=== PATIENT | female | born 1940 | race Caucasian/White ===

== ENCOUNTER 2016-10-06 12:45 | Emergency (ER) | payer MEDICARE ==
[2016-10-06 13:45] VITALS: BP 140/63
--- NOTE | 2016-10-06 13:50 | UC ---
Respiratory Complaint HPI - HPI Summary HPI Summary: complaint of cough and sneezing that started approx 3.5 weeks ago for 4 days she is having wheezing at night and chills -fatigued and feels weak nasal congestion and sinus pressure for the last 3 days denies fever sore throat, shortness of breath poor appetite for 3 days abut drinking fluids took some robitussin for her cough without relief. currently taking medication for lung Cancer- unsure of her treatment plan and how long she has been under treatment- sees Dr Hawley PCP and Dr Escobedo at [facility] appt in 11/2016 - History of Current Complaint Chief Complaint: UCRespiratory Stated Complaint: COUGH,SINUS Time Seen by Provider: 10/06/16 13:31 Hx Obtained From: Patient Hx Last Menstrual Period: n/a - Allergies/Home Medications Allergies/Adverse Reactions: Allergies Allergy/AdvReac Type Severity Reaction Status Date / Time Meperidine [From Demerol HCl] Allergy Intermediate GI Upset Verified 05/30/16 15 :00 Home Medications: Home Medications Megestrol TAB* [Megace TAB*] 40 mg PO TID 10/06/16 [History Confirmed 10/06/16] Triamcinolone 0.1% Oint (NF) [Triamcinolone Acetonide] 1 applic TOPICAL DAILY [History Confirmed 10/06/16] PMH/Surg Hx/FS Hx/Imm Hx Previously Healthy: No - lung cancer Endocrine History Of: Denies: Diabetes Cardiovascular History Of: Denies: Hypertension, Pacemaker/ICD, Congestive Heart Failure GI/ History Of: Denies: Renal Disease - Surgical History Surgical History: Yes Surgery Procedure, Year, and Place: Cholecystectomy, 2011; Complete Hysterectomy , 1988; Right Arm Nerve and Tendon Repair s/p Laceration, 1969 - Family History Known Family History: Positive: Respiratory Disease Negative: Cardiac Disease, Hypertension, Diabetes - Social History Occupation: Employed Part-time Lives: With Family Alcohol Use: None Substance Use Type: None Smoking Status (MU): Never Smoked Tobacco - Immunization History Most Recent Influenza Vaccination: Not the 2015/2016 Season Most Recent Pneumonia Vaccination: "A long time ago" Review of Systems Constitutional: Chills Skin: Negative Eyes: Negative ENT: Nasal Discharge Respiratory: Cough Cardiovascular: Negative Gastrointestinal: Negative Genitourinary: Negative Motor: Negative Neurovascular: Negative Musculoskeletal: Negative Neurological: Negative Psychological: Negative All Other Systems Reviewed And Are Negative: Yes Physical Exam Triage Information Reviewed: Yes Appearance: No Pain Distress, Well-Nourished, Ill-Appearing Vital Signs: Initial Vital Signs Temp 98.2 F 10/06/16 13:31 Pulse 76 10/06/16 13:31 Resp 18 10/06/16 13:31 BP 140/63 10/06/16 13:31 Pulse Ox 99 10/06/16 13:31 Vital Signs Reviewed: Yes Eyes: Positive: Conjunctiva Clear ENT: Positive: Nasal congestion, TMs normal, Other: - maxillary sinus tenderness Neck: Positive: No Lymphadenopathy Respiratory: Positive: Lungs clear, Normal breath sounds, No respiratory distress Cardiovascular: Positive: RRR, No Murmur Abdomen Description: Positive: Nontender, Soft Bowel Sounds: Positive: Present Musculoskeletal: Positive: No Edema Neurological: Positive: Alert Psychological Exam: Normal Skin Exam: Normal UC Diagnostic Evaluation - Laboratory O2 Sat by Pulse Oximetry: 99 Respiratory Course/Dx - Course Course Of Treatment: exam completed. chest x-ray ordered due to length of current coughing. findings- no acute changes. Left upper pulmonry nodule being follwed by Dr Escobedo at [facility]. will treat for sinusitis and followup with Dr Hawley in 1 week or sooner if symptoms worsen - Differential Dx/Diagnosis Differential Diagnosis/HQI/PQRI: Lower Resp Infection, Sinusitis, Other - URI Provider Diagnoses: sinusitis Discharge - Discharge Plan Condition: Stable Disposition: HOME Patient Education Materials: Sinusitis (ED) Referrals: Red Hawley MD [Primary Care Provider] - Additional Instructions: Please take antibiotic as directed. Increase fluids and rest Take acetaminophen for fever or pain Please review your discharge instructions. please call your primary care provider Dr Jack for a followup visit in 5-7 days or sooner if your symptoms worsen
--- NOTE | 2016-10-06 14:08 | RAD ---
INDICATION: Cough. COMPARISON: Comparison is made with a prior CT of the chest from May 04, 2016 and prior chest x-ray study from April 08, 2010. TECHNIQUE: Dual-energy PA and lateral views of the chest were obtained. FINDINGS: The heart is within normal limits in size. Mediastinal and hilar contours appear within normal limits. The lungs are slightly hyperinflated. There is a slightly lobulated 1.2 cm pulmonary nodule which projects over the left upper lobe. This is not present on the prior chest x-ray study and is seen on the more recent prior CT of the chest exam. At the time of the prior CT of the chest study a follow-up was recommended in 4 months time which has not been completed at this institution. The lungs are otherwise clear. No pleural effusion is seen. IMPRESSION: 1. NO EVIDENCE FOR ACUTE FINDING. 2. LEFT UPPER LOBE PULMONARY NODULE IS NOTED AND WAS DESCRIBED ON THE PRIOR CT OF THE CHEST. A FOLLOW-UP CT STUDY WAS RECOMMENDED WHICH HAS NOT BEEN PERFORMED AT THE [facility]. IF THAT EXAM HAS NOT BEEN PERFORMED AT AN OUTSIDE INSTITUTION THAN THE PATIENT WOULD BE DUE FOR A FOLLOW-UP CT OF THE CHEST WITHOUT CONTRAST TO ASSESS STABILITY OF THE PULMONARY NODULE.
== END 2016-10-06 14:50 | disposition home or self-care (01) ==
LOC: UCCORT 12:45
DX: J32.9 Chronic sinusitis, unspecified (principal); Z88.5 Allergy status to narcotic agent; R91.1 Solitary pulmonary nodule
CPT/HCPCS: 71020; 99212; G0463

== ENCOUNTER 2018-02-09 13:58 | Emergency (ER) | payer MEDICARE ==
[2018-02-09 14:17] VITALS: BP 140/63
--- NOTE | 2018-02-09 14:54 | ED ---
Bite Injury/Animal - HPI Summary HPI Summary: 77 yr old female with the complaint of tick on right upper abdomen. Unknown how long it was attached for sure. Possibly a couple days. Not engorged. She feels well otherwise. No other complaints. - History of Current Complaint Chief Complaint: Ben Stated Complaint: TICK BITE Time Seen by Provider: 02/09/18 14:36 Hx Last Menstrual Period: n/a Pain Intensity: 0 - Allergies/Home Medications Allergies/Adverse Reactions: Allergies Allergy/AdvReac Type Severity Reaction Status Date / Time meperidine [From Demerol] AdvReac Intermediate GI Upset Verified 02/09/18 14:20 PMH/Surg Hx/FS Hx/Imm Hx Endocrine/Hematology History: Denies: Hx Diabetes, Hx Systemic Lupus Erythematosus Cardiovascular History: Denies: Hx Congestive Heart Failure, Hx Hypertension, Hx Pacemaker/ICD GI History: Reports: Other GI Disorders - see above History: Denies: Hx Dialysis, Hx Renal Disease Musculoskeletal History: Denies: Hx Rheumatoid Arthritis Sensory History: Denies: Hx Hearing Aid Psychiatric History: Denies: Hx Panic Disorder - Cancer History Cancer Type, Location and Year: per pt endometrial 1988, 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 Pt finished radiation tx about 2015. Lung lesion secondary to site above liver found 2012 Hx Chemotherapy: No - Surgical History Surgery Procedure, Year, and Place: TOTAL HYSTERECTOMY,GALLBLADDER, RT ARM SURGERY, LT BREAST BIOSPY 15 OR 20 YRS AGO AT [facility] [place],sinus cyst, Infectious Disease History: No Infectious Disease History: Denies: Traveled Outside the [place] in Last 30 Days - Family History Known Family History: Positive: Respiratory Disease Negative: Cardiac Disease, Hypertension, Diabetes - Social History Occupation: Works From/At Home Lives: With Family Alcohol Use: Rare Substance Use Type: Reports: None Smoking Status (MU): Never Smoked Tobacco Review of Systems Constitutional: Negative Positive: Other - tick on skin All Other Systems Reviewed And Are Negative: Yes Physical Exam Triage Information Reviewed: Yes Vital Signs On Initial Exam: Initial Vitals Temp Pulse Resp BP Pulse Ox 98.4 F 73 20 140/63 98 02/09/18 14:05 02/09/18 14:05 02/09/18 14:05 02/09/18 14:05 02/09/18 14:05 Vital Signs Reviewed: Yes Appearance: Positive: Well-Appearing, No Pain Distress Skin: Positive: Other - tick on right upper abdomen with two inch diameter erythema ENT: Positive: Normal ENT inspection Neck: Positive: Supple, Nontender Respiratory/Lung Sounds: Positive: Clear to Auscultation, Breath Sounds Present Cardiovascular: Positive: RRR. Negative: Murmur Abdomen Description: Positive: Nontender, Other: - tick RUQ Musculoskeletal: Positive: Strength/ROM Intact Neurological: Positive: Sensory/Motor Intact, Alert, Oriented to Person Place, Time, CN Intact II-III Psychiatric: Positive: Normal - [place] Coma Scale Best Eye Response: 4 - Spontaneous Best Motor Response: 6 - Obeys Commands Best Verbal Response: 5 - Oriented Coma Scale Total: 15 Procedures - Procedure Summary Procedure Summary: tick removed from RUQ of abdomen with tick removers. Tolerated well. Diagnostics - Vital Signs Vital Signs Temp Pulse Resp BP Pulse Ox 02/09/18 14:05 98.4 F 73 20 140/63 98 - Laboratory Lab Statement: Any lab studies that have been ordered have been reviewed, and results considered in the medical decision making process. Bite Injury Course/Dx - Course Course Of Treatment: 77 yr old female with tick RUQ, and and removed easily. Given the two inch diameter redness despite no engorgement will Rx with Doxy for 14 days. - Diagnoses Provider Diagnosis: Tick bite of abdomen, Hypertension Discharge - Sign-Out/Discharge Documenting (check all that apply): Discharge/Admit/Transfer - Discharge Plan Condition: Good Disposition: HOME Prescriptions: Doxycycline Monohydrate 100 mg PO BID #28 capsule Patient Education Materials: Hypertension (ED), Tick Bite (ED) Referrals: Red Hawley MD [Primary Care Provider] - - Billing Disposition and Condition Condition: GOOD Disposition: HOME
== END 2018-02-09 15:00 | disposition home or self-care (01) ==
LOC: UCCORT 13:58
DX: S30.861A Insect bite (nonvenomous) of abdominal wall, initial encounter (principal); I10 Essential (primary) hypertension; Z88.5 Allergy status to narcotic agent; Z90.710 Acquired absence of both cervix and uterus; W57.XXXA Bitten or stung by nonvenomous insect and other nonvenomous arthropods, initial encounter
CPT/HCPCS: 99212; G0463

== ENCOUNTER 2018-06-27 13:33 | Emergency (ER) | payer MEDICARE ==
[2018-06-27 14:07] VITALS: BP 150/65
--- NOTE | 2018-06-27 14:23 | ED ---
Skin Complaint - HPI Summary HPI Summary: bitten by tick, removed by , concerned that some of the tick might be left, given doxycycline by primary care doctor - History of Current Complaint Chief Complaint: UCSkin Time Seen by Provider: 06/27/18 14:08 Stated Complaint: TICK Hx Obtained From: Patient Hx Last Menstrual Period: n/a Onset/Duration: Started Days Ago Timing: Constant Pain Intensity: 2 Skin Location: Discrete - Allergy/Home Medications Allergies/Adverse Reactions: Allergies Allergy/AdvReac Type Severity Reaction Status Date / Time meperidine [From Demerol] AdvReac Intermediate GI Upset Verified 06/27/18 14:00 PMH/Surg Hx/FS Hx/Imm Hx Previously Healthy: Yes Endocrine/Hematology History: Denies: Hx Diabetes, Hx Systemic Lupus Erythematosus Cardiovascular History: Denies: Hx Congestive Heart Failure, Hx Hypertension, Hx Pacemaker/ICD GI History: Reports: Other GI Disorders - see above History: Denies: Hx Dialysis, Hx Renal Disease Musculoskeletal History: Denies: Hx Rheumatoid Arthritis Sensory History: Denies: Hx Hearing Aid Psychiatric History: Denies: Hx Panic Disorder - Cancer History Cancer Type, Location and Year: per pt endometrial 1988, 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 Pt finished radiation tx about 2015. Lung lesion secondary to site above liver found 2012 Hx Chemotherapy: No - Surgical History Surgery Procedure, Year, and Place: TOTAL HYSTERECTOMY,GALLBLADDER, RT ARM SURGERY, LT BREAST BIOSPY 15 OR 20 YRS AGO AT [facility] [place],sinus cyst, Infectious Disease History: No Infectious Disease History: Denies: Traveled Outside the [place] in Last 30 Days - Family History Known Family History: Positive: Respiratory Disease Negative: Cardiac Disease, Hypertension, Diabetes - Social History Alcohol Use: Occasionally Substance Use Type: Reports: None Smoking Status (MU): Never Smoked Tobacco Review of Systems Constitutional: Negative Eyes: Negative ENT: Negative Positive: Epistaxis Cardiovascular: Negative Respiratory: Negative Gastrointestinal: Negative Genitourinary: Negative Musculoskeletal: Negative Skin: Other - s/p tick bite on the right lower back Neurological: Negative Psychological: Normal All Other Systems Reviewed And Are Negative: Yes Physical Exam Triage Information Reviewed: Yes Vital Signs On Initial Exam: Initial Vitals Temp Pulse Resp BP Pulse Ox 36.6 C 68 18 150/65 100 06/27/18 14:02 06/27/18 14:02 06/27/18 14:02 06/27/18 14:02 06/27/18 14:02 Vital Signs Reviewed: Yes Appearance: Positive: Well-Appearing Skin: Positive: Warm, Dry - no remaining tick parts seen , area of scab formation, no surrounding erythema Head/Face: Positive: Normal Head/Face Inspection Eyes: Positive: Normal ENT: Positive: Normal ENT inspection Neck: Positive: Supple Diagnostics - Vital Signs Vital Signs Temp Pulse Resp BP Pulse Ox 06/27/18 14:02 36.6 C 68 18 150/65 100 - Laboratory Lab Statement: Any lab studies that have been ordered have been reviewed, and results considered in the medical decision making process. Course/Dx - Diagnoses Provider Diagnoses: Tick bite of back Discharge - Sign-Out/Discharge Documenting (check all that apply): Patient Departure All imaging exams completed and their final reports reviewed: Yes - Discharge Plan Condition: Good Disposition: HOME Patient Education Materials: Tick Bite (ED) Referrals: Red Hawley MD [Primary Care Provider] - - Billing Disposition and Condition Condition: GOOD Disposition: Home
== END 2018-06-27 14:31 | disposition home or self-care (01) ==
LOC: UCCORT 13:33
DX: T63.481A Toxic effect of venom of other arthropod, accidental (unintentional), initial encounter (principal); Y92.9 Unspecified place or not applicable; Z88.6 Allergy status to analgesic agent
CPT/HCPCS: 99211; G0463

== ENCOUNTER 2019-02-15 12:54 | Emergency (ER) | payer MEDICARE ==
--- NOTE | 2019-02-15 14:34 | UC ---
Skin Complaint HPI - HPI Summary HPI Summary: 78 y/o female presents to the urgent care c/o tick bite on her posterior thigh she noticed this morning. She was out in the garden yesterday. Her tried to removed it, but she thinks she thinks some parts of tick still present. This is the 5th time she has a tick bite since 07/2018, but has always taken the prophylactic treatment. Pt denies fever, joint pain, BROWNE, dizziness, SOB, chest pain, abdominal pain, N/V/D. - History of Current Complaint Time Seen by Provider: 02/15/19 14:32 Stated Complaint: TICK Hx Obtained From: Patient Hx Last Menstrual Period: n/a ?: No Onset/Duration: Sudden Onset, Lasting Days - 1 day, Resolved - her removed tick, Worse Since - this morning Skin Exposure Onset/Duration: Days Ago - 1 day. Pt was outside in the garden yesterday Timing: Constant Onset Severity: Mild Current Severity: Mild Pain Intensity: 1 Pain Scale Used: 0-10 Numeric Location: Discrete - left posterior thigh w/ tick bite Character: Pruritus, Redness Aggravating Factor(s): Touch Alleviating Factor(s): Other - tick removal Associated Signs & Symptoms: Positive: Rash - tick bite in the posterior left thigh. Negative: Fever, Chills, Drainage, Tenderness Related History: Possible Reaction to: Insect - tick - Allergy/Home Medications Allergies/Adverse Reactions: Allergies Allergy/AdvReac Type Severity Reaction Status Date / Time meperidine [From Demerol] AdvReac Intermediate GI Upset Verified 02/15/19 14:35 Home Medications: Home Medications Cholecalciferol TAB* [Vitamin D TAB*] 1,000 unit PO DAILY 02/15/19 [History Confirmed 02/15/19] Meloxicam 7.5 mg PO DAILY 02/15/19 [History Confirmed 02/15/19] PMH/Surg Hx/FS Hx/Imm Hx Previously Healthy: Yes Cardiovascular History: Hypertension Cancer History: Breast Cancer - Surgical History Surgical History: Yes Surgery Procedure, Year, and Place: TOTAL HYSTERECTOMY,GALLBLADDER, RT ARM SURGERY, LT BREAST BIOSPY 15 OR 20 YRS AGO AT [facility] [place],sinus cyst, - Family History Known Family History: Positive: Hypertension, Respiratory Disease Negative: Cardiac Disease, Diabetes - Social History Occupation: Retired Lives: With Family Alcohol Use: Occasionally Substance Use Type: None Smoking Status (MU): Never Smoked Tobacco - Immunization History Most Recent Influenza Vaccination: Not the 2016/2016 Season Most Recent Pneumonia Vaccination: "A long time ago" Review of Systems All Other Systems Reviewed And Are Negative: Yes Constitutional: Positive: Negative Skin: Positive: Other - tick bite in the left posterior thigh Eyes: Positive: Negative ENT: Positive: Negative Respiratory: Positive: Negative Cardiovascular: Positive: Negative Gastrointestinal: Positive: Negative Genitourinary: Positive: Negative Motor: Positive: Negative Neurovascular: Positive: Negative Musculoskeletal: Positive: Negative Neurological: Positive: Negative Psychological: Positive: Negative Is Patient Immunocompromised?: No Physical Exam - Summary Physical Exam Summary: Vital Signs Reviewed: Yes General: well developed, well nourished female sitting in the examining table w/ o any apparent distress. Eyes: Positive: Conjunctiva Clear - PERRLA, EOMI ENT: Positive: Normal ENT inspection, Hearing grossly normal, Pharynx normal, TMs normal Neck: Positive: Supple, Nontender, No Lymphadenopathy Respiratory: Positive: Chest nontender, Lungs clear, Normal breath sounds Cardiovascular: Positive: RRR, No Murmur, Pulses Normal Abdomen Description: Positive: Nontender, No Organomegaly, Soft. Negative: CVA Tenderness (R), CVA Tenderness (L) Bowel Sounds: Positive: Present Musculoskeletal: Positive: Strength Intact, ROM Intact, No Edema Neurological Exam: Normal Psychological Exam: Normal Skin: Positive: rashes - Mid posterior side of left thigh with tick bite with surrounding erythema, non tender to palpation. tick no longer present, no swelling or drainage observed. Triage Information Reviewed: Yes Course/Dx - Course Course Of Treatment: 78 y/o female presents to the urgent care c/o tick bite on her posterior thigh she noticed this morning. She was out in the garden yesterday. Her tried to removed it, but she thinks she thinks some parts of tick still present. This is the 5th time she has a tick bite since 07/2018, but has always taken the prophylactic treatment. Pt denies fever, joint pain, BROWNE, dizziness, SOB, chest pain, abdominal pain, N/V/D. Hx obtained. Pt w/ Mid posterior side of left thigh with tick bite with surrounding erythema, non tender to palpation. tick no longer present, no swelling or drainage observed on examination. tick bite cleaned w/ alcohol swabs and Bacitracin oint applied. Antibiotic prophylaxis with Doxycycline given to the patient to prevent lyme Disease.. Pt tolerated well medication. Pt advised to observe the area for the development or Erythema Migrans for upto 30 days following exposure. Advised if he develops fever or erythema Migrans to return to the clinic or PCP for further treatment. Pt's BP is elevated today advised to decrease salt in diet, monitor BP and f/u with PCP for further management. D/c instructions explained. Pt understood and agreed with plan of care. - Differential Diagnoses - Skin Complaint Differential Diagnoses: Abscess, Cellulitis, Local Allergic Reaction, Tick Born Illness, Urticaria, Other - insect bite, bee sting - Diagnoses Provider Diagnosis: Tick bite of left thigh, Uncontrolled hypertension Discharge - Sign-Out/Discharge Documenting (check all that apply): Patient Departure - D/C home All imaging exams completed and their final reports reviewed: No Studies - Discharge Plan Condition: Stable Disposition: HOME Prescriptions: Bacitracin OINTMENT* 1 applic TOPICAL BID #1 tube Patient Education Materials: Tick Bite (ED) Referrals: Red Hawley MD [Primary Care Provider] - 2 Weeks Gayatri HENNESSY,Tien Olvera [Medical Doctor] - If Needed Additional Instructions: 1- Please observe the area for the development or Erythema Migrans for upto 30 days following exposure. Components of the tick saliva can cause transient erythema that should not be confused with Erythema Migrans. If you develop the bull's eye rash, fever, joint pains please f/u with your PCP or DR Phillips for further management. Apply Bacitrain pint 2x/day to prevent infection 2-Antibiotic prophylaxis with Doxycycline was given to you today to prevent Lyme Disease. Lyme serology can be drawn in 2 weeks with your PCP to r/o Lyme disease since there is probability of negative results at early exposure. 3-Your BP is elevated today. Please take your BP medications and decrease salt in your diet, monitor BP and if it continues to be elevated please f/u with your PCP for further management. If you develop chest pain, dizziness, visual disturbances, SOB, or severe BROWNE please go immediately to the ER for further management - Billing Disposition and Condition Condition: STABLE Disposition: Home
[2019-02-15 14:35] VITALS: BP 169/63
[2019-02-15] MEDS ORDERED: DOXYcycline CAP(*) 100 MG PO ONE (14:54)
== END 2019-02-15 15:12 | disposition home or self-care (01) ==
LOC: UCCORT 12:54
DX: S70.362A Insect bite (nonvenomous), left thigh, initial encounter (principal); I10 Essential (primary) hypertension; W57.XXXA Bitten or stung by nonvenomous insect and other nonvenomous arthropods, initial encounter
CPT/HCPCS: 99212; A9270-GY; G0463

== ENCOUNTER 2019-08-14 12:23 | Observation (INO) | payer MEDICARE ==
--- OUTSIDE RECORDS SUMMARY | 2019-08-14 12:37 | XMS REPORT | Continuity of Care Document ---
:1940 External Reference #:[id number] Author Name Marquise Enrique MD (transmitted by agent of provider Abdoulaye Sharif) Address [address] [place] [id number] Care Team Providers Name Role Phone Red Hawley MD - Family Medicine Care Team Information Station Chief [phone] Problems Description No Information Available Social History Type Date Description Comments Sex Unknown ETOH Use Denies alcohol use Tobacco Use Start: Unknown Patient has never smoked Smoking Status Reviewed: 06/22/19 Patient has never smoked Exercise Type/Frequency Does not exercise Allergies, Adverse Reactions, Alerts Description No Known Drug Allergies Medications Active Medications SIG Qnty Indications Ordering Provider Date Anastrozole 1 by mouth every Marquise Enrique, 05/02/2019 1mg Tablets day Immunizations Description No Information Available Vital Signs Date Vital Result Comment 06/22/2019 1:10pm Height 59 inches 4'11" Weight 118.00 lb Heart Rate 76 /min BP Systolic 126 mmHg BP Diastolic 70 mmHg Respiratory Rate 12 /min Pain Level 6 BMI (Body Mass Index) 23.8 kg/m2 05/02/2019 1:54pm Height 59 inches 4'11" Weight 119.00 lb Heart Rate 64 /min Respiratory Rate 18 /min Body Temperature 97.9 F Pain Level 7 BMI (Body Mass Index) 24.0 kg/m2 Results Description No Information Available Procedures Date Code Description Status 06/22/2019 26265 Inject/Drain Joint/Bursa Major W/O US Completed Medical Devices Description No Information Available Encounters Type Date Location Provider Dx Diagnosis Office Visit 05/02/2019 [facility] Marquise Caro M75.51 Bursitis of right 1:30p at Funmi Enrique MD shoulder M19.041 Primary osteoarthritis, right hand M75.81 Other shoulder lesions, right shoulder Assessments Date Code Description Provider 06/22/2019 M75.51 Bursitis of right shoulder Marquise Enrique MD 06/22/2019 S46.011D Strain of muscle(s) and tendon(s) of the Marquise Enrique MD rotator cuff of right shoulder, subsequent encounter 06/22/2019 M19.041 Primary osteoarthritis, right hand Marquise Enrique MD 05/02/2019 M75.51 Bursitis of right shoulder Marquise Enrique MD 05/02/2019 M19.041 Primary osteoarthritis, right hand Marquise Enrique MD 05/02/2019 M75.81 Other shoulder lesions, right shoulder Marquise Enrique MD Plan of Treatment Future Appointment(s):07/20/2019 2:00 pm - Marquise Enrique MD at [facility] at [id number]/03/2019 2:00 pm - Cassie Tanner M.D. at [facility] at [id number]/22/2019 - Marquise Enrique, MDM75.51 Bursitis of right shoulderFollow up:4 weeks with me for the right shoulder Refer her to Dr. Tanner for her severe right hand osteoarthritis and [id number] Strain of muscle(s) and tendon(s) of the rotator cuff of right shoulder, subsequent [id number] Primary osteoarthritis, right handFollow up:Follow up: Functional Status Description No Information Available Mental Status Description No Information Available Referrals Description No Information Available
--- OUTSIDE RECORDS SUMMARY | 2019-08-14 12:37 | XMS REPORT | Continuity of Care Document ---
:1940 External Reference #:[id number] Author Name Malu Valle, MONISHA Address [address] [place] [address] Care Team Providers Name Role Phone Pattie Perez - Gastroenterology Care Team Information Production Repairer [facility] [place] Department - Diagnostic Care Team Information Production Repairer [phone] Radiology JosiahAngela gallegos MD - Hematology & Care Team Information Production Repairer Oncology Problems Active Problems Provider Date Essential hypertension Red Hawley M.D. 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 Capsules Lisinopril 1 by mouth every 30tabs I10 Red Carty 07/13/2018 2.5mg Tablets day Anali Hawley Automatic Blood take blood 1units I10 Tina Porter 07/13/2018 Pressure Monitor pressure daily M.DOpal Device Anastrozole Unknown 1mg Tablets History Medications Prednisone 3 x 3 days 2 x 3 18tabs Red Hawley, 04/05/2019 - 20mg Tablets days 1 x 3 days M.D. 04/25/2019 Celebrex 1 by mouth every 30caps Red Hawley, 03/14/2019 - 200mg Capsules day M.D. 04/25/2019 Doxycycline Hyclate 2 by mouth by 2tabs Tina Porter M.D. 01/21/2019 - 100mg mouth x1 02/24/2019 Tablets Medications Administered in Office Medication SIG Qnty Indications Ordering Provider Date B-12 Injection Red Hawley M.D. 07/14/2019 Injection Injection Subcutaneous Or Red Hawley M.D. 07/14/2019 Intramuscular Injection B-12 Injection Red Hawley M.D. 06/20/2019 Injection Injection Subcutaneous Or Red Hawley M.D. 06/20/2019 Intramuscular Injection B-12 Injection Red Hawley M.D. 06/09/2019 Injection Injection Subcutaneous Or Red Hawley M.D. 06/09/2019 Intramuscular Injection Immunizations CPT Code Status Date Vaccine Lot # [id number] Given 06/06/2019 High-Dose, Influenza Virus Vacccine-fluzone 65 and [id number] older 64858 Given 11/23/2018 Pneumococcal Immunization [id number] Given 06/17/2018 High-Dose, Influenza Virus Vacccine-fluzone 65 and [id number] older 26712 Given 06/15/2017 Pneumococcal Conjugate Vacc-13 [id number] 77415 Given 06/15/2017 High-Dose, Influenza Virus Vacccine-fluzone 65 and [id number] older 41151 Given 09/04/2014 High-Dose, Influenza Virus Vacccine-fluzone 65 and [id number] older 60605 Given 10/10/2013 High-Dose, Influenza Virus Vacccine-fluzone 65 and [id number] older 17605 Given 07/28/2010 DO Not Use Split Influenza Virus Vaccine Vital Signs Date Vital Result Comment 07/17/2019 3:41pm BP Systolic 126 mmHg BP Diastolic 86 mmHg Heart Rate 84 /min Body Temperature 99.3 F Respiratory Rate 16 /min Height 62 inches 5'2" Weight 114.00 lb BMI (Body Mass Index) 20.8 kg/m2 06/06/2019 9:13am BP Systolic 132 mmHg BP Diastolic 78 mmHg Heart Rate 66 /min Body Temperature 97.7 F Weight 117.00 lb Results Test Date Facility Test Result H/L Range Note Comprehensive Metabolic 06/06/2019 Shane Juli([facility]) Sodium 140 mEq/L 134-149 Prof Potassium 4.2 mEq/L 3.6-5.5 Chloride 102 mEq/L 94-112 Carbon Dioxide 26 mEq/L 21-32 Glucose 98 mg/dL 70-105 BUN 13 mg/dL 6-26 Creatinine 0.7 mg/dL 0.6-1.4 BUN/Creat Ratio 18.6 CALC 8.0-36.0 Calcium 9.7 mg/dL 8.6-10.2 Total Protein 7.3 g/dL 6.4-8.3 Albumin 4.7 g/dL 3.8-5.5 Globulin 2.6 g/dL 2.0-4.8 A/G Ratio 1.8 CALC 0.6-2.3 Alk. Phosphatase 96 U/L 30-110 Alt (SGPT) 17 U/L 7-35 Ast (Sgot) 19 U/L 5-34 Total Bilirubin 0.7 mg/dL 0.2-1.3 GFR Non- >60 ml/min/1.73m^ >=60 GFR >60 ml/min/1.73m^ >=60 Laboratory test 06/06/2019 Shane Juli([facility]) Free T4 1.19 ng/dL 0.75- 1.54 finding TSH 0.94 mIU/L 0.50-6.00 Vitamin B-12 186 pg/mL Low 230-1050 1 CBC Electronic Fma 06/06/2019 Shane Juli([facility]) WBC 5.5 x10^3/UL 4.0- 10.0 RBC 4.19 x10^6/UL 3.93-6.00 HGB 12.8 g/dL 12.0-17.0 HCT 39 % 35-50 MCV 92.4 fL 80.0-95.0 MCH 30.5 pg 25.6-32.2 MCHC 33.1 g/dL 32.2-36.0 RDW-CV 12.5 % 11.6-14.4 PLT 202 x10^3/UL 163-400 MPV 11.2 fL 9.4-12.4 Jude# 3.57 x10^3/UL 1.56-6.13 Lymph# 1.32 x10^3/UL 1.18-3.74 Bibb# 0.47 x10^3/UL 0.24-0.82 Eos # 0.1 x10^3/UL 0.0-0.5 Baso # 0.03 x10^3/UL 0.01-0.08 Jude% 65.0 % 34.0-70.0 Lymph % 24.0 % 20.0-52.0 Bibb% 8.5 % 5.0-12.0 Eos% 1.8 % 0.7-7.0 Baso% 0.5 % 0.1-1.2 Laboratory test 06/06/2019 [facility] Sedimentation Rate 25mm finding (607)- - Laboratory test 06/06/2019 [facility] C-Reactive Protein, 2 mg/L 0-10 2 finding [address] [place] [address] (607)- - Lyme, Line Blot, 06/06/2019 [facility] IgG P93 Ab. Absent Serum [address] [place] [address] (607)- - IgG P66 Ab. Absent IgG P58 Ab. Absent IgG P45 Ab. Absent IgG P41 Ab. Absent IgG P39 Ab. Absent IgG P30 Ab. Absent IgG P28 Ab. Absent IgG P23 Ab. Absent IgG P18 Ab. Absent Lyme IgG Line Blot Interp. Negative 3 IgM P41 Ab. Absent IgM P39 Ab. Absent IgM P23 Ab. Absent Lyme IgM Line Blot Interp. Negative 4 Laboratory test 06/06/2019 [facility] Cortisol - Am 9.1 g/dL 6.2-19.4 finding [address] [place] [address] (607)- - Lipid Profile 04/25/2019 Lynn Juli([facility]) Cholesterol 293 mg/dL High 120-200 Triglycerides 69 mg/dL 30-200 HDL Cholesterol 121 mg/dL High 30-85 LDL (Calculated) 158 CALC High 0-129 VLDL Cholesterol 14 mg/dL 0-50 HDL Risk Factor 2.4 CALC 0.0-4.4 1 RESULTS VERIFIED BY REPEAT ANALYSIS 2 1 tiger top sst tube 3 Positive: 5 of the following Borrelia-specific bands: 18,23,28,30,39,41,45,58, 66, and 93. Negative: No bands or banding patterns which do not meet positive criteria. 4 Note: An equivocal or positive EIA result followed by a negative Line Blot result is considered NEGATIVE. An equivocal or positive EIA result followed by a positive Line Blot is considered POSITIVE by the CDC. Positive: 2 of the following bands: 23,39 or 41 Negative: No bands or banding patterns which do not meet positive criteria. Criteria for positivity are those recommended by CDC/ASTPHLD. p23=Osp C, v77=bvundylrv Note: Sera from individuals with the following may cross react in the Lyme Line Blot assays: other spirochetal diseases (periodontal disease, leptospirosis, relapsing fever, yaws, and pinta); connective autoimmune (Rheumatoid Arthritis and Systemic Lupus Erythematosus and also individuals with Antinuclear Antibody); other infections ([place] Spotted Fever; Irvin-Stevens Virus, and Cytomegalovirus). Procedures Date Code Description Status 07/14/2019 12270 Injection Subcutaneous Or Intramuscular Completed 06/20/2019 08498 Injection Subcutaneous Or Intramuscular Completed 06/09/2019 03702 Injection Subcutaneous Or Intramuscular Completed 02/08/2019 [id number] Mammogram Completed 02/02/2018 [id number] Mammogram Completed 07/20/2017 [id number] Mammogram Completed 03/05/2015 [id number] Mammogram Completed 07/06/2011 [id number] Colonoscopy Completed Medical Devices Description No Information Available Encounters Type Date Location Provider Dx Diagnosis Office Visit 06/06/2019 [facility] Office Red Hawley, R53.83 Other fatigue 9:20a M.May R53.1 Weakness R25.1 Tremor, unspecified Z23 Encounter for immunization D51.8 Other vitamin B12 deficiency anemias Office Visit 04/25/2019 11:20a [facility] Red Carty M25.511 Pain in right Anali Hawley shoulder E78.5 Hyperlipidemia, unspecified Office Visit 04/05/2019 10:10a [facility] Red Carty M25.511 Pain in right Anali Hawley shoulder M25.541 Pain in joints of right hand M79.621 Pain in right upper arm M79.631 Pain in right forearm Office Visit 02/24/2019 1:00p [facility] Office Yeimy Mittal.1 Other dominic Sharif NP keratosis Assessments Date Code Description Provider 07/17/2019 R60.0 Localized edema Malu Valle NP 07/17/2019 Z63.79 Other stressful life events affecting Malu Valle NP family and household 07/14/2019 D51.8 Other vitamin B12 deficiency anemias Red Hawley M.D. 06/20/2019 D51.8 Other vitamin B12 deficiency anemias Red Hawley M.D. 06/09/2019 D51.8 Other vitamin B12 deficiency anemias Red Hawley M.D. 06/06/2019 R53.83 Other fatigue Red Hawley M.D. 06/06/2019 R53.1 Weakness Red Hawley M.D. 06/06/2019 R25.1 Tremor, unspecified Red Hawley M.D. 06/06/2019 Z23 Encounter for immunization Red Hawley M.D. 06/06/2019 D51.8 Other vitamin B12 deficiency anemias Red Hawley M.D. 04/25/2019 M25.511 Pain in right shoulder Red Hawley M.D. 04/25/2019 E78.5 Hyperlipidemia, unspecified Red Hawley M.D. 04/05/2019 M25.511 Pain in right shoulder Red Hawley M.D. 04/05/2019 M25.541 Pain in joints of right hand Red Hawley M.D. 04/05/2019 M79.621 Pain in right upper arm Red Hawley M.D. 04/05/2019 M79.631 Pain in right forearm Red Hawley M.D. 02/24/2019 L82.1 Other seborrheic keratosis Yeimy Sharif NP Plan of Treatment Future Appointment(s):08/04/2019 1:00 pm - Malu Valle NP at [facility]07/28/2019 2:00 pm - Red Hawley M.D. at [facility]2018 - Malu Valle, NPR60.0 Localized edemaComments:Supportive Care:- Elevate legs- Increase protein in diet and try to drink at least 1-2 more glasses of water per day - Take frequent breaks while on your feet - Compression stockings ED Precautions reviewedFollow up:2 weeks if this doesn't improve symptoms then we can consider nhjhtxuzkmtV04.79 Other stressful life events affecting family and householdComments: [facility] Patient Understands medications he 's taking? Yes No Are there Barriers to Adherence? Yes No Has the patient been asked about herbal supplements and therapies, andOTC meds? Yes No Care Plan1. Patient has been queried about patient's goals/preferences and functional/lifestyle goals at relevant visits. If relevant, describe: na2. Treatment goals as explained to the patient: above3. Are there barriers to meeting treatment goals? Yes No If Yes, please describe: life circumstance, polypharmacy, comorbid conditions, disease process 4. Self-Management goals as described to the patient: Yes NoAs always, we strongly encourage a healthy diet and making physical activity a part of your every day life. If you have questions about how orwhere to start, please contact the office. Functional Status Description No Information Available Mental Status Description No Information Available Referrals Refer to Reason for Referral Status Appt Date Marquise Enrique MD frozen right shoulder jw Scheduled 05/02/2019 [facility] [address] [place] [address] [phone] Russell Ulrich MD consult and treat jw Scheduled 03/29/2019 [facility] [address] [place] [address] [phone]
--- NOTE | 2019-08-14 15:00 | ED ---
Complex/Multi-Sys Presentation - HPI Summary HPI Summary: 79-year-old female with a significant medical history of hypertension and breast cancer presents to emergency department with chief complaint of weakness 6 months and difficulty swallowing 2 weeks. The patient's family is present at the bedside. Patient reports increased number of falls for the last week her most recent being 08/09/2019 after which she was evaluated in the emergency department. She states over the last 2 weeks whenever she eats she "chokes on my food" and has difficulty swallowing liquids due to the same reason. She otherwise feels well. She denies fever, chest pain, abdominal pain , shortness of breath, pain with urination, headache, rash. - History Of Current Complaint Chief Complaint: EDThroatPain Time Seen by Provider: 08/14/19 15:00 Hx Obtained From: Patient, Family/Sales Negotiator Onset/Duration: Gradual Onset, Lasting Weeks Timing: Constant Severity Currently: Mild Severity Initially: Mild Associated Signs And Symptoms: Positive: Weakness - Allergies/Home Medications Allergies/Adverse Reactions: Allergies Allergy/AdvReac Type Severity Reaction Status Date / Time meperidine [From Demerol] AdvReac Intermediate GI Upset Verified 08/14/19 12:33 Home Medications: Home Medications Cyanocobalamin INJ * [Vitamin B12 INJ *] 1,000 mcg IM .EVERY 2 WEEKS FOR 4 08/14 [History Confirmed 08/14/19] Diphenoxylat/Atrop 2.5-0.025M* [Lomotil TAB*] 1 tab PO QID PRN 08/14/19 [ History Confirmed 08/14/19] Lisinopril [Lisinopril 2.5 MG-] 2.5 mg PO DAILY 08/14/19 [History Confirmed ] Sertraline* [Zoloft*] 25 mg PO DAILY 08/14/19 [History Confirmed 08/14/19] PMH/Surg Hx/FS Hx/Imm Hx Endocrine/Hematology History: Denies: Hx Diabetes, Hx Systemic Lupus Erythematosus, Hx Thyroid Disease Cardiovascular History: Denies: Hx Congestive Heart Failure, Hx Hypertension, Hx Pacemaker/ICD Respiratory History: Denies: Hx Asthma, Hx Chronic Obstructive Pulmonary Disease (COPD) GI History: Reports: Other GI Disorders - see above Denies: Hx Ulcer History: Denies: Hx Dialysis, Hx Renal Disease Musculoskeletal History: Denies: Hx Rheumatoid Arthritis Sensory History: Denies: Hx Hearing Aid Psychiatric History: Denies: Hx Panic Disorder - Cancer History Cancer Type, Location and Year: per pt endometrial 1988, 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 Pt finished radiation tx about 2015. Lung lesion secondary to site above liver found 2012 Hx Chemotherapy: No - Surgical History Surgery Procedure, Year, and Place: TOTAL HYSTERECTOMY,. GALLBLADDER,. RT ARM SURGERY,. LT BREAST BIOSPY 15 OR 20 YRS AGO AT [facility] [place],. SINUS CYST, Infectious Disease History: No Infectious Disease History: Denies: Hx Hepatitis, Hx Human Immunodeficiency Virus (HIV), Traveled Outside the [place] in Last 30 Days - Family History Known Family History: Positive: Hypertension, Respiratory Disease Negative: Cardiac Disease, Diabetes - Social History Alcohol Use: Occasionally Substance Use Type: Reports: None Smoking Status (MU): Never Smoked Tobacco Review of Systems Constitutional: Negative Eyes: Negative ENT: Negative Cardiovascular: Negative Respiratory: Negative Gastrointestinal: Negative Genitourinary: Negative Musculoskeletal: Negative Skin: Negative Neurological: Negative Psychological: Normal All Other Systems Reviewed And Are Negative: Yes Physical Exam Triage Information Reviewed: Yes Vital Signs On Initial Exam: Initial Vitals Temp Pulse Resp BP Pulse Ox 98.4 F 97 18 162/128 97 08/14/19 12:26 08/14/19 12:26 08/14/19 12:26 08/14/19 12:26 08/14/19 12:26 Vital Signs Reviewed: Yes Appearance: Positive: Well-Appearing, No Pain Distress, Well-Nourished Skin: Positive: Warm, Skin Color Reflects Adequate Perfusion Eyes: Positive: EOMI, LAMIN ENT: Positive: Hearing grossly normal Respiratory/Lung Sounds: Positive: Clear to Auscultation, Breath Sounds Present Cardiovascular: Positive: RRR, S1, S2 Abdomen Description: Positive: Nontender, Soft Bowel Sounds: Positive: Present Musculoskeletal: Positive: Strength/ROM Intact Neurological: Positive: Sensory/Motor Intact, Alert, Oriented to Person Place, Time, Normal Gait, Facial Symmetry, Speech Normal Psychiatric: Positive: Normal AVPU Assessment: Alert Procedures - Sedation Patient Received Moderate/Deep Sedation with Procedure: No Diagnostics - Vital Signs Vital Signs Temp Pulse Resp BP Pulse Ox 08/14/19 14:47 99.8 F 79 18 147/64 99 08/14/19 12:26 98.4 F 97 18 162/128 97 - Laboratory Result Diagrams: 08/14/19 16:03 08/14/19 16:03 Lab Statement: Any lab studies that have been ordered have been reviewed, and results considered in the medical decision making process. Complex Multi-Symp Course/Dx Course Of Treatment: The patient was seen in the emergency department due to increased weakness and trouble swallowing. The patient was seen and examined her vital signs are stable and she is afebrile. Laboratory studies ordered which revealed no evidence of leukocytosis or anemia however there were significant IN normalities. Her potassium was 2.9 and her magnesium was 1.7. She was given 40 mEq of potassium by IV due to her inability to swallow, her magnesium did not require replacement. Patient was ambulated and had a confident gait and did so without difficulty. A dysphagia screening was done which the patient failed. Due to her inability to have by mouth intake it was deemed she is unfit to return home. Hospitalist, Dr. Baez, was consulted at 1730 for disposition of this patient. a CT of the brain with contrast was ordered in order to investigate possible pathology causing her weakness including tumor due to her medical history of cancer. - Diagnoses Differential Diagnoses/HQI/PQRI: Other - weakness, esophageal mass, achalasia. Provider Diagnoses: Weakness, Dysphagia - Physician Notifications Instructed by Provider To: Admit As Inpatient Admit/Transition Orders Completed By ED Provider: No Discharge ED - Sign-Out/Discharge Documenting (check all that apply): Patient Departure, Sign-Out Patient Signing out patient TO: Katie Villafuerte Receiving patient FROM: Gavino Mcnamara - Discharge Plan Condition: Stable Disposition: ADMITTED TO [facility] Patient Education Materials: Weakness (ED), Dysphagia (ED) Referrals: Red Hawley MD [Primary Care Provider] - 2 Days Additional Instructions: You were seen in the emergency department today due to your weakness and trouble swallowing. I'm not sure why you are having these symptoms however it does not appear to be due to any acute medical problems. Please follow up with your primary care provider for further evaluation and management of your symptoms. In the meantime, please have a thickened liquid diet as you have difficulty swallowing thin liquids such as water. Thick liquids will improve your ability to swallow and decrease the chance for you to aspirate. Please return to the emergency department immediately if you develop any new or worsening symptoms. - Billing Disposition and Condition Condition: STABLE Disposition: Admitted to [facility]
[2019-08-14 16:18] LABS: ABS Basophils 0.1 10^3/ul (0-0.2); ABS Eosinophils 0.1 10^3/ul (0-0.6); ABS Lymphocytes 0.9 10^3/ul (1.0-4.8); ABS Monocytes 0.6 10^3/ul (0-0.8); ABS Neutrophils 5.4 10^3/ul (1.5-7.7); Eosinophil % 1.6 %; Hematocrit 39 % (35-47); Hemoglobin 13.5 g/dL (12.0-16.0); Lymphocyte % 12.6 %; Mean Corpuscular HGB Conc 35 g/dL (31-36); Mean Corpuscular Hemoglobin 31 pg (27-31); Mean Corpuscular Volume 90 fL (80-97); Mean Platelet Volume 10.1 fL (7.4-10.4); Platelet Count 165 10^3/uL (150-450); Red Blood Count 4.31 10^6 /uL (3.70-4.87); Red Cell Distribution Width 13 % (10-15); White Blood Count 7.1 10^3/uL (3.5-10.8)
[2019-08-14 16:28] LABS: Calcium 9.5 mg/dL (8.6-10.3); Magnesium 1.7 mg/dL (1.9-2.7); Potassium 2.9 mmol/L (3.5-5.0); Total Bilirubin 0.6 mg/dL (0.2-1.0)
[2019-08-14] MEDS ORDERED: Potassium Chlor TAB* 20 MEQ TAB.ER PO ONE (16:33)
[2019-08-14 16:34] LABS: Albumin/Globulin Ratio 1.7 (1-3); BUN/Creatinine Ratio 23.8 (8-20); EGFR African American 110.6 (>60); EGFR Non-African American 91.4 (>60); Globulin 2.4 g/dL (2-4); Total Protein 6.4 g/dL (6.4-8.9)
[2019-08-14] MEDS ORDERED: Potassium Chlor TAB* 10 MEQ TAB.ER PO ONE ×2 (17:06)
[2019-08-14] MEDS ORDERED: Iohexol 300* (CONTRAST) 10 ML SDV IV ONE (17:34)
[2019-08-14] MEDS: KCL 20 MEQ/100 ML IVPREMIX* 20 MEQ/100 ML BAG IV SCH ×3 (18:07→23:32)
--- NOTE | 2019-08-14 18:18 | ED ---
Progress - EKG/XRAY/CT CT: IMPRESSION: No acute intracranial pathology. - Additional EKG/XRAY/Consults EKG #2: NSR Comments: sinus rhythm, RBBB Re-Evaluation - Re-Evaluation First Eval Re-Evaluation Time: 19:13 Comment: patient asleep in room Course/Dx - Course Course Of Treatment: The patient was seen in the emergency department due to increased weakness and trouble swallowing. The patient was seen and examined her vital signs are stable and she is afebrile. Laboratory studies ordered which revealed no evidence of leukocytosis or anemia however there were significant IN normalities. Her potassium was 2.9 and her magnesium was 1.7. She was given 40 mEq of potassium by IV due to her inability to swallow, her magnesium did not require replacement. Patient was ambulated and had a confident gait and did so without difficulty. A dysphagia screening was done which the patient failed. Due to her inability to have by mouth intake it was deemed she is unfit to return home. Hospitalist, Dr. Baez, was consulted at 1730 for disposition of this patient. a CT of the brain with contrast was ordered in order to investigate possible pathology causing her weakness including tumor due to her medical history of cancer. CT brain normal. discussed with dr solomon who will admit although this may be stress reaction. - Diagnoses Provider Diagnoses: Weakness, Dysphagia - Provider Notifications Instructed by Provider To: Admit As Inpatient Admit/Transition Orders Completed By ED Provider: No Discharge ED - Sign-Out/Discharge Documenting (check all that apply): Patient Departure, Receiving Sign-Out Receiving patient FROM: Gavino Mcnamara - Discharge Plan Condition: Stable Disposition: ADMITTED TO [facility] - Billing Disposition and Condition Condition: STABLE Disposition: Admitted to [facility]
[2019-08-14] MEDS ORDERED: Magnesium Sulfate 2 GM IV* 2 GM/50 ML BAG IVPB ONE (20:13)
[2019-08-14] MEDS ORDERED: Potassium Chlor TAB* 20 MEQ TAB.ER PO SCH (21:00)
--- NOTE | 2019-08-14 23:13 | HP ---
CC: Dr. Hawley; Dr. Escobedo * HISTORY AND PHYSICAL: DATE OF ADMISSION: 08/14/19 PRIMARY CARE PROVIDER: Dr. Hawley. ONCOLOGIST: Dr. Escobedo at [facility]. ATTENDING PHYSICIAN: Dr. Coley * (dictated by ANDREA Macario) CHIEF COMPLAINT: "I couldn't swallow anything." HISTORY OF PRESENT ILLNESS: Ms. Joseph Chavez is a 79-year-old female with a past medical history of lung cancer, hypertension, depression, who presents to the ER today with complaints of dysphagia times approximately 3 weeks. She notes that this has progressively worsened. This began with dysphagia to liquids and progressed to a "stuck in my throat" feeling when swallowing boluses of food. She notes that she is now unable to take her oral medications , which she had no difficulty with until the last couple of days. She notes that this is intermittent, for example she had no trouble swallowing supper last night or breakfast this morning. She also complains of progressive weakness with difficulty with ambulation that she states has been occurring " all summer" but has worsened in the last 1 month. It is important to note that the patient's had been terminally ill for the last 3 to 4 weeks and recently on Wednesday. Also, it is important to note that the patient sustained a fall on Wednesday, went to [facility] where she received a CT of the head due to injury to the head as well as right knee x-ray, all of which were negative. She complains of generalized weakness in bilateral upper extremities and lower extremities. She does have a right-sided frozen shoulder , which is chronic and has not changed recently. She does note that she quit driving approximately 2 weeks ago because she has difficulty with shifting car gears. She denies cough, fever, chills. She denies vision changes, slurring speech, speech changes, altered mentation. She denies night sweats, but does complain of weight loss of approximately 12 pounds in the last 1 month. She believes that this is due to decreased p.o. intake due to depression and stress in the last 1 month. She denies abdominal pain, nausea, vomiting, diarrhea, constipation, myalgias, arthralgias. In the ER, the patient received a full workup including laboratory data. CBC was within normal limits. CMP revealed potassium of 2.9, magnesium 1.7. A CT of the brain was performed and revealed no acute intracranial pathology. In the ER, the patient received 40 mEq IV potassium. Hospitalist team was asked to evaluate the patient for admission. PAST MEDICAL HISTORY: 1. Lung cancer for which the patient reports she is on anastrozole. She denies history of breast cancer. 2. Hypertension. 3. Depression, started on sertraline 3 to 4 days ago. 4. History of endometrial cancer. 5. History of liver mass, which was treated with 5 weeks of radiation therapy in 2012. PAST SURGICAL HISTORY: 1. Hysterectomy. 2. Cholecystectomy. 3. Right shoulder, left breast biopsy revealing "dense tissue." 4. Sinus cyst. MEDICATIONS: Home medications: 1. Anastrozole 1 mg p.o. daily. 2. Cholecalciferol 2000 units p.o. daily. 3. Cyanocobalamin 1000 mcg IM q.2 weeks. 4. Lomotil 1 tab p.o. four times a day p.r.n. diarrhea. 5. Lisinopril 2.5 mg p.o. daily. 6. Sertraline 25 mg p.o. daily. DRUG ALLERGIES: MEPERIDINE, GI upset. FAMILY HISTORY: Maternal grandmother from [place]. Mother had lung cancer. Father and brother had diabetes mellitus. Daughter with rheumatoid arthritis. No family history of CVA. SOCIAL HISTORY: The patient denies current or former use of tobacco. She drinks less than weekly, occasionally having 1 glass of wine. She does not use any illicit drugs. She is a retried principal administrative clerk. She is - her this Wednesday. She lives with her 's brother. She has 1 daughter, who lives in [place]. In the event that she is unable to make her own medical decision, she has appointed her daughter, Cecilio Lundberg, to be her surrogate decision maker. REVIEW OF SYSTEMS: A 14-point review of systems has been performed and all the pertinent positives and negatives are in the HPI. Other systems are negative. PHYSICAL EXAMINATION GENERAL: Ms. Joseph Chavez is a well-developed, well-nourished, thin, older white woman who is sitting up in bed. She appears to be mildly depressed. She is in no acute distress. She is cooperative and appropriate. VITAL SIGNS: Temperature 99.8 temporal, heart rate 79, respiratory rate 18, oxygen saturation 99% on room air, blood pressure 147/64. HEENT: PERRL, EOMI. Nonicteric sclerae. There is a right periorbital ecchymosis area that appears to be subacute. Hearing grossly intact. Oral mucous membranes are mildly dry. Pharynx is clear. Tongue is at midline. Palate elevates symmetrically. PULMONARY: Symmetrical chest expansion with no use of accessory muscles. Clear to auscultation bilaterally without rhonchi, wheeze, rales. CARDIOVASCULAR: Regular rate and rhythm with S1 and S2 present, without murmurs , rubs, clicks, or gallops. There is no JVD. There is no peripheral edema. ABDOMEN: Flat, bowel sounds in all quadrants, soft and nontender to palpation. EXTREMITIES: No digital clubbing or cyanosis. MUSCULOSKELETAL: Left upper extremity, bilateral lower extremities with 5/5 strength and full range of motion. The right elbow extension is diminished compared to the left elbow extension but still 5/5 strength. There is decreased range of motion at the right shoulder. NEUROLOGIC: The patient is awake. She is alert and oriented x3. Cranial nerves are grossly intact. Muscle strength as above, 5/5 throughout. DIAGNOSTIC STUDIES/LAB DATA: CBC without gross abnormality. Potassium 2.9, magnesium 1.7. CT brain negative for acute intracranial abnormality. ASSESSMENT AND PLAN: Joseph Chavez is a 79-year-old female with a past medical history of lung cancer, hypertension, depression, as well as history of endometrial cancer and liver mass, treated with 5 weeks of radiation, who presented to the ER today with complaints of dysphagia. The patient will be admitted for: 1. Dysphagia. The patient presents with 3 weeks of dysphagia that has progressively worsened but is also intermittent. She notes that this occurred suddenly. It is important to note that her on Wednesday. This could be a stress reaction, although it is important to consider the patient's extensive history of cancer and associated weight loss. A nursing bedside swallow eval has been ordered and her dietary status will depend on this. Speech Therapy has been consulted for further recommendations and suggestions. I will request reports from Dr. Escobedo regarding the patient's history of cancer. 2. Lung cancer. The patient states that she is on anastrozole for lung cancer. She denies history of breast cancer. She also has a history of liver and endometrial cancer. We will continue her home anastrozole. We will request records from Dr. Escobedo. 3. Hypokalemia. The patient has received 40 IV potassium. We will order another 40 IV potassium and recheck in the morning. 4. Hypomagnesemia. Magnesium is 1.7, we will order 2 g IV magnesium and recheck in the morning. 5. Hypertension. Continue lisinopril. 6. Depression. Continue sertraline. The patient recently started this approximately 3 to 4 days ago. 7. DVT prophylaxis. According to the DVT Risk Assessment, the patient scored 3 placing her at high risk. She will be started on Lovenox. 8. Code status. Full code. TIME SPENT: Approximately 60 minutes was spent on this admission, greater than half that time was spent [id number] with the patient obtaining history, performing physical, and reviewing the plan of care. The case has been reviewed was my attending, Dr. Coley, who is in agreement with the plan of care. ANDREA JONES [id number]/CPS #: [id number] GREGOR
[2019-08-14] MEDS: Enoxaparin(*) 40 MG/0.4 ML SYR SUBCUT SCH (23:31)
[2019-08-15 02:12] LABS: Urine Appearance Clear; Urine Bilirubin Negative (Negative); Urine Blood 1+ (Negative); Urine Color Straw; Urine Glucose Negative (Negative); Urine Ketones 1+ (Negative); Urine Nitrite Negative (Negative); Urine Protein Negative (Negative); Urine Specific Gravity 1.015 (1.010-1.030); Urine Urobilinogen Negative (Negative)
[2019-08-15 02:15] LABS: Urine Bacteria Absent (Absent); Urine Red Blood Cell Trace(0-2/hpf) (Absent); Urine White Blood Cell Trace(0-5/hpf) (Absent)
[2019-08-15] MEDS: KCL 20 MEQ/100 ML IVPREMIX* 20 MEQ/100 ML BAG IV SCH (04:02)
[2019-08-15 05:51] LABS: BUN/Creatinine Ratio 14.6 (8-20); Calcium 8.4 mg/dL (8.6-10.3); EGFR African American 151.4 (>60); EGFR Non-African American 125.1 (>60); Magnesium 2.2 mg/dL (1.9-2.7); Potassium 3.6 mmol/L (3.5-5.0)
[2019-08-15] MEDS: CMCS:Anastrozole (NF) 1 MG TAB PO SCH (13:00)
--- NOTE | 2019-08-15 14:08 | PN ---
Subjective Date of Service: 08/15/19 Interval History: HOSPITALIST PROGRESS NOTE Patient seen and examined at bedside. Care reviewed and d/w Mary Kate Arzola RN. She failed he nursing swallow evaluation. Denies pain at this time. Family History: Unchanged from Admission Social History: Unchanged from Admission Past Medical History: Unchanged from Admission Objective Active Medications: Anastrozole (Arimidex (Nf)) 1 mg PO DAILY [facility] Last Admin: 08/15/19 13:00 Dose: 1 mg Enoxaparin Sodium (Lovenox(*)) 40 mg SUBCUT Q24H [facility] Last Admin: 08/14/19 23:31 Dose: 40 mg Vital Signs - 8 hr 08/15/19 08/15/19 08/15/19 07:15 07:17 07:20 Temperature 98.4 F Pulse Rate 81 Respiratory 20 Rate Blood Pressure 157/69 151/69 147/65 (mmHg) O2 Sat by Pulse 99 Oximetry 08/15/19 08/15/19 09:18 11:15 Temperature 98.0 F Pulse Rate 86 Respiratory 20 18 Rate Blood Pressure 139/75 (mmHg) O2 Sat by Pulse 96 Oximetry Oxygen Devices in Use Now: None Appearance: Elderly, petite lady, sitting up in bed in NAD. Eyes: No Scleral Icterus Ears/Nose/Mouth/Throat: Mucous Membranes Moist Neck: Trachea Midline Respiratory: Symmetrical Chest Expansion and Respiratory Effort, Clear to Auscultation Cardiovascular: RRR - Normal S1 and S2 Abdominal: NL Sounds; No Tenderness; No Distention Extremities: No Edema Neurological: Alert and Oriented x 3, NL Muscle Strength and Tone Result Diagrams: 08/14/19 16:03 08/15/19 05:08 Assess/Plan/Problems-Billing Assessment: Mrs Joseph Chavez is a 79yo F with PMH of HTN, depression, endometrial CA with lung mets (now on Arimidex), who presented to ED with c/o dysphagia. - Patient Problems (1) Dysphagia Comment: - Described as intermittent, with different textures, to the point she could not swallow her pills this AM. - Described 12lbs weight loss. - Speech pathology recommended modified barium swallow. - Awaiting GI input. (2) Endometrial cancer Comment: - With lung mets. - Followed by Dr Escobedo at [place] - Arimidex dose increased over the summer due to increase in size of lung lesion. (3) Right arm pain Comment: - C/o RUE pain after fall at home. - Has know right frozen shoulder. - Check xray. (4) DVT prophylaxis Comment: - Lovenox. (5) Full code status Status and Disposition: OBV.
[2019-08-15] MEDS ORDERED: Acetaminophen TAB* 325 MG PO PRN (14:22)
[2019-08-15] MEDS: NS 0.9% 1000 ML** 1,000 ML IV SCH (14:27)
[2019-08-15] MEDS: Enoxaparin(*) 40 MG/0.4 ML SYR SUBCUT SCH (20:44)
--- NOTE | 2019-08-15 21:58 | CONS ---
GASTROENTEROLOGY CONSULT: DATE: 08/15/19 CONSULTING PHYSICIAN: Zuly Guaman MD. REASON FOR CONSULTATION: Difficulty swallowing beginning 3 or 4 weeks ago. HISTORY OF PRESENT ILLNESS: This 79-year-old woman who has a history of metastatic uterine cancer to lungs, hypertension, depression, and whose passed on hospice 4 days ago, came to the ER complaining of trouble swallowing. She said it started with water 3 or 4 weeks ago and seemed to get worse over time. It was somewhat vaguely described. She had a swallowing evaluation in the ER and did not do well with it, though says some tips were given to her. She then had a formal evaluation this after noon and did well with thin liquids and had trouble with bruno cracker. As I am coming by wade she says that she had pureed diet - mashed potatoes and gravy and turkey tonight and that went down well. She smiles and says the swallowing has been improving. She has no history of peptic disease or upper gastrointestinal complaints. She has never had an upper endoscopy. She had a chest CT in March that showed multiple pulmonary lesions as noted before. She has not had any thoracic imaging since then in the [facility] system. In the emergency room, her CBC was normal with hemoglobin 13.5, hematocrit 39, white count 7.1, BUN 15, creatinine 0.63, LFTs normal and albumin 4.0. No family members are available at this time to corroborate or extend any of the history. PAST MEDICAL HISTORY: 1. Uterine cancer - metastatic to lung followed by Mechanical Laboratory Technician-Oncology Service at Dr. Gregg Bruner. 2. Hypertension - no history of CVA or other sequelae. 3. Depression. 4. Status post cholecystectomy, Dr. Green in remote past. 5. Hysterectomy. 6. History of liver mass treated with radiation in 2012, further details not available. MEDICATIONS: 1. Arimidex 1 mg daily. 2. Lisinopril 2.5 daily. 3. Sertraline 25. 4. Lomotil 1 four times a day. ALLERGIES: MEPERIDINE causes GI upset. FAMILY HISTORY: Her mother had lung cancer. There is no history of CVAs in the family. SOCIAL HISTORY: She lives in [place], [place] and has a daughter in [place]. Her primary has been Dr. Hawley. She is retired administrative job titles. Her daughter in [place] will be her surrogate decision maker. REVIEW OF SYSTEMS: No history of acid indigestion or heartburn, use of Tums, acid blockers, hepatitis, NM, congestive failure, arrhythmias, syncope. She did have a fall last week and had a CT head in the [place] emergency room and repeat here EXAM: She is an elderly woman in bed with an ecchymosis around the right orbit. Extraocular movements appear intact. Arm movements appear intact. Her voice is normal. Temperature is 98.1, pulse 75. HEENT exam shows no icterus. Tongue protrudes in the midline. She has no adenopathy. No deformity of the neck. Lungs seem clear, though breath sounds are diminished. Heart sounds are regular without any murmur. Abdomen is flat, symmetric, soft, and nontender. Rectal deferred. Extremities show no edema. Neurologic: Nonfocal. Her right shoulder has reduced mobility. IMAGING: CT of the brain was negative. IMPRESSION: This 79-year-old woman complains of dysphagia that has not been accompanied by any past history of peptic symptoms or any upper GI referable complaint. With her stating it began with water, one must question a motility disorder or neurologic disorder. She did not complain of diplopia or anything else that might direct one towards myasthenia, but neurologic issues such as that have to be consideration. A barium swallow has been planned and that would seem to be appropriate. The fact that she did well with the pureed diet and accompanying liquids suggests she will soon be able to manage at home for a stepwise w/u as an outpatient She does not describe food catching or being vomited up or anything suggesting a stricture making the barium swallow also a more attractive option. She has not had any thoracic imaging in quite some time and we will order a chest x-ray. [id number]/CPS #: [id number] GREGOR
--- NOTE | 2019-08-15 22:06 | CONS ---
CONSULTATION REPORT: DATE OF CONSULT: 08/15/19 Thank you for this orthopedic consultation. CHIEF COMPLAINT: Status post fall with question of an olecranon fracture on x- ray. HISTORY OF PRESENT ILLNESS: Ms. Joseph Chavez is a 79-year-old female with multiple medical comorbidities. She reports that she had a fall on Wednesday. She does have some slightly increased shoulder pain, 4/10 aching pain along the right shoulder. She has chronic frozen shoulder with minimal motion in this shoulder. She has chronic daily pain in this shoulder. She denies pain in the elbow or hand. She does have decreased range of motion in the hand from arthritis. The patient reports she fell over some wood. She was seen at [facility] and had a CT of the head. The patient reports generalized weakness, difficulty swallowing, and recent weight loss. She does have a significant history of lung cancer and depression. Her recently and she was diagnosed with depression as well. PAST MEDICAL HISTORY: Lung cancer, history of breast cancer, hypertension, depression, endometrial cancer, liver mass. PAST SURGICAL HISTORY: Hysterectomy, cholecystectomy, right shoulder surgery, left breast biopsy sinus cyst. HOME MEDICATIONS: 1. Anastrazole 1 mg p.o. daily. 2. Cholecalciferol 2 tabs as needed p.o. daily. 3. Cyanocobalamin 1000 mcg IM q.2 weeks. 4. Lomotil 1 tab p.o. 4 times a day p.r.n. diarrhea. 5. Lisinopril 2.5 mg p.o. daily. 6. Sertraline 25 mg p.o. daily. ALLERGIES: MEPERIDINE. FAMILY HISTORY: Maternal: [place], lung cancer. Paternal: Diabetes. SOCIAL HISTORY: The patient is recently . She denies tobacco use. Minimal alcohol use. No recreational drugs. She reports that she lives with her 's brother. She has a daughter in [place]. Cecilio Lundberg is her surrogate decision maker. She normally ambulates independently, but has been using the rolling walker since being admitted to [facility]. REVIEW OF SYSTEMS: A 14 systems reviewed with the patient. Positive for right shoulder pain, hand pain due to arthritis, weakness, fatigue, recent falls, weight loss, trouble swallowing. Otherwise, the patient reports review of systems is negative or not relevant. PHYSICAL EXAM: Vitals: Temperature 99, pulse 78, blood pressure 139/63. General: The patient is a thin female in no apparent distress. Alert and oriented x3. Pleasant mood, appropriate affect. Right upper extremity: The patient's skin has multiple bruises and small abrasions, but no open wounds. She has tenderness along the deltoid muscle. Abduction to 40 degrees before she has severe pain. Forward flexion to 80 degrees before severe pain. She has rotator cuff weakness at the elbow. I can range her near full motion with no tenderness to palpation. No pain with range of motion. No varus or valgus instability. At the wrist, she has no tenderness to palpation. Her hand is contracted with arthritic joints and she cannot fully extend the fingers which she reports is her baseline. She has minimal pinch or black belt strength. 2+ palpable radial pulse. She reports full sensation to light touch in all nerve distributions. DIAGNOSTIC STUDIES/LAB DATA: Radiographs: Multiple views of the right shoulder , humerus, and elbow are viewed. On one of the formal radiology reports, there is question of an olecranon fracture and elbow joint effusion is noted. I do not see an obvious fracture. Labs from 08/14/19 are reviewed. White blood cell 7.1, platelets 165, hematocrit 39. Sodium 145, potassium 2.9, now corrected today to 3.6. BUN and creatinine 7 and 0.48. Urine negative for infection. ASSESSMENT AND PLAN: Ms. Joseph Chavez is a 79-year-old right-hand dominant female with multiple medical comorbidities. She has recent fall with some increased shoulder pain. She has baseline frozen shoulder or adhesive capsulitis. No obvious fracture on x-rays today. Her elbow physical exam shows no significant pain. I feel this is likely just an artifact on the right elbow film and she likely does not have a fracture of the elbow. At this time, she should be weightbearing as tolerated and motion as tolerated in the right upper extremity. I agree with the rolling walker for a fall precaution. The patient and I discussed that she can follow up as an outpatient if she would like to be treated for her adhesive capsulitis of the right shoulder and multiple other arthritic joints. She was given my card and can call the office at [phone] for an appointment as an outpatient when she is discharged from the hospital. Please call with any questions. [id number]/[facility] #: [id number] [facility] [place]
[2019-08-16] MEDS: NS 0.9% 1000 ML** 1,000 ML IV SCH (03:48)
[2019-08-16] MEDS: CMCS:Anastrozole (NF) 1 MG TAB PO SCH (08:44)
[2019-08-16 11:51] VITALS: BP 164/58
[2019-08-16] MEDS ORDERED: Diphenoxylat/Atrop 2.5-0.025M* 1 TAB PO PRN (13:54)
[2019-08-16] MEDS ORDERED: Lisinopril TAB* 5 MG PO SCH (14:00)
[2019-08-17] MEDS ORDERED: Cholecalciferol TAB* 1000 UNITS PO SCH (09:00)
[2019-08-17] MEDS ORDERED: Sertraline* 25 MG TAB PO SCH (09:00)
--- NOTE | 2019-08-17 17:16 | DS ---
CC: Dr. Hawley; Dr. Escobedo; Dr. Rao * DISCHARGE SUMMARY: DATE OF ADMISSION: 08/14/19 DATE OF DISCHARGE: 08/16/19 PRIMARY CARE PROVIDER: Dr. Hawley. ONCOLOGIST: Dr. Escobedo at [facility]. CONSULTING DRAIN LAYER: Dr. Rao. DISCHARGE DIAGNOSIS: Pharyngeal esophageal dysphagia. SECONDARY DIAGNOSES: 1. Metastatic endometrial cancer with lung metastasis. 2. Hypertension. 3. Depression. MEDICATION LIST: 1. Anastrazole 1 mg p.o. daily. 2. Cholecalciferol 2000 units p.o. daily. 3. Cyanocobalamin 1000 mcg IM every 2 weeks. 4. Lomotil 1 tablet p.o. 4 times a day as needed for diarrhea. 5. Lisinopril 2.5 mg p.o. daily. 6. Sertraline 25 mg p.o. daily. HOSPITAL COURSE: Ms. Joseph Chavez is a 79-year-old female with a past medical history as stated above, who presented to the emergency room with complaints of dysphagia. The patient has had a very stressful recent time with her being terminally ill and he recently passed. The patient was having difficulty when swallowing boluses of food and this was intermittent and with different textures. For more details about her presentation, I refer you to her history and physical. The patient had sustained a fall at home and her CT of brain without contrast was done and showed no acute intracranial pathology. She was seen in consultation by Gastroenterology (Dr. Rao) and he was in agreement with having a swallow evaluation first. She was seen by Speech Pathology and also had a modified barium swallow that showed mild to moderate pharyngoesophageal dysphagia. She was found to have adequate oral bolus control but had moderate stasis in the oropharynx with residue in the valleculae. No aspiration was observed. The recommendation was for a soft texture diet with extra sauces and gravy and thin liquids are okay. The recommendation was for her to straighten her upper back and neck, and tucked chin with head high to swallow and on discharge, she should continue speech/swallow evaluation and treatment. The plan at this time is to continue therapy and if symptoms persist then should be reevaluated by Dr. Rao, should decided if upper endoscopy is indicated. After her fall, the patient complained of right upper extremity pain and on x- ray there was a question of right elbow fracture. For that reason she was seen in consultation by Orthopedics (Dr. Mayorga) and Dr. Mayorga did not think there was any fracture of the elbow. She is aware of the patient's right frozen shoulder and the patient can follow with Orthopedics as outpatient for that. The patient is medically stable to be discharged home today to follow up with Dr. Hawley as outpatient. PHYSICAL EXAMINATION: Vital Signs: Temperature 97.9, heart rate 71, respiratory rate 16, oxygen saturation is 97% on room air, blood pressure is 149 /59. General: The patient is a pleasant elderly lady, sitting up in the chair in no acute distress. CVS: Normal S1, S2. Regular rate and rhythm. Chest: Breath sounds noted. No added sounds. Abdomen is soft, nontender. Bowel sounds present. Neuro: She is alert and oriented x3. She able to move all 4 extremities. DIET: Regular diet with soft texture thin liquids. ACTIVITIES: As tolerated. DISPOSITION: To home. STATUS WHILE IN THE HOSPITAL: Inpatient. CONDITION AT THE TIME OF DISCHARGE: Fair. At the time of discharge, the patient was able to tolerate diet and oral medications including whole pills. Please keep in mind that this is a summarized version of this patient's hospital stay. If you need more information, please feel free to call me at [phone] or please obtain full medical records. TIME SPENT: Approximately 45 minutes was spent to complete this discharge. [id number]/CPS #: [id number] GREGOR
== END 2019-08-16 15:55 | disposition home or self-care (01) ==
LOC: ED 12:23 → MED 20:46
PROVIDERS: ADMIT Hospitalist; ATTEND Internal Medicine
DX: R13.19 Other dysphagia (principal); C54.1 Malignant neoplasm of endometrium; R53.1 Weakness; C78.00 Secondary malignant neoplasm of unspecified lung; I10 Essential (primary) hypertension; F32.9 Major depressive disorder, single episode, unspecified; Z79.899 Other long term (current) drug therapy; Z85.42 Personal history of malignant neoplasm of other parts of uterus; R94.31 Abnormal electrocardiogram [ECG] [EKG]; Z91.81 History of falling
CPT/HCPCS: 36415; 70470; 71046; 74230; 80048; 80053; 81003; 81015; 83735; 85025; 86140; 87086; 93005; 96361; 96365; 96366; 96367; 96372; 99285; A9270-GY; G0378; G8978-GP-CK; G8979-GP-CH; J1650; J3475; J3480; Q9967

== ENCOUNTER 2019-10-11 10:31 | Observation (INO) | payer MEDICARE ==
--- OUTSIDE RECORDS SUMMARY | 2019-10-11 10:38 | XMS REPORT | Continuity of Care Document ---
:1940 External Reference #:[id number] Author Name Karl Martinez M.D. (transmitted by agent of provider Mary Mehta ) Address [address], [place] [address] Care Team Providers Name Role Phone Red Hawley MD - Family Medicine Care Team Information Tuyere Fitter Problems Description No Information Available Social History Type Date Description Comments Sex Unknown ETOH Use Denies alcohol use Tobacco Use Start: Unknown Patient has never smoked Recreational Drug Use Never Used Drugs Smoking Status Reviewed: 10/11/19 Patient has never smoked Exercise Type/Frequency Does not exercise Allergies, Adverse Reactions, Alerts Description No Known Drug Allergies Medications Active Medications SIG Qnty Indications Ordering Provider Date Anastrozole 1 by mouth every 05/02/2019 1mg Tablets day MD Klaus Lisinopril 1 by mouth every Unknown 5mg Tablets day Ibu 1 tablet every 8 Unknown 400mg Tablets hours as needed for pain Medications Administered in Office Medication SIG Qnty Indications Ordering Provider Date Depomedrol 40MG Marquise Enrique MD 06/22/2019 Injection Immunizations Description No Information Available Vital Signs Date Vital Result Comment 10/11/2019 8:48am Height 59 inches 4'11" Weight 98.00 lb Heart Rate 72 /min BP Systolic Sitting 120 mmHg BP Diastolic Sitting 64 mmHg Respiratory Rate 16 /min BMI (Body Mass Index) 19.8 kg/m2 07/20/2019 2:22pm Height 59 inches 4'11" Weight 118.00 lb Heart Rate 64 /min BP Systolic 116 mmHg BP Diastolic 80 mmHg Pain Level 5 BMI (Body Mass Index) 23.8 kg/m2 Results Description No Information Available Procedures Date Code Description Status 06/22/2019 44100 Inject/Drain Joint/Bursa Major W/O US Completed Medical Devices Description No Information Available Encounters Type Date Location Provider Dx Diagnosis Office Visit 08/16/2019 [facility] Zuly Linder, C78.00 Secondary 8:48a ignacia Arteaga M.D. malignant neoplasm Hospitalists of unspecified lung R13.19 Other dysphagia C54.1 Malignant neoplasm of endometrium I10 Essential (primary) hypertension M79.601 Pain in right arm F32.9 Major depressive disorder, single episode, unspecified Office Visit 08/15/2019 10:28a [place] Lilliana W19.xxxA Unspecified fall, Orthopedics at [facility] initial encounter [place] M25.521 Pain in right elbow Office Visit 08/15/2019 [facility] Gastroenterology David Gilbert R13.19 Other dysphagia 7:00a MD Jalen Office Visit 08/14/2019 [facility] Lisa R13.10 Dysphagia, 8:47a ignacia Arteaga Hospitalists [place], unspecified PA C34.90 Malignant neoplasm of unsp part of unsp bronchus or lung E87.6 Hypokalemia I10 Essential (primary) hypertension Office Visit 07/20/2019 2:00p Ronaldo Caro M75.51 Bursitis of at [facility] Enrique MD right shoulder M75.81 Other shoulder lesions, right shoulder Office Visit 06/22/2019 1:00p Ronaldo Caro M75.51 Bursitis of at Fun[facility] Enrique MD right shoulder M19.041 Primary osteoarthritis, right hand M75.81 Other shoulder lesions, right shoulder Office Visit 05/02/2019 1:30p Ronaldo Nolan75.51 Bursitis of at [facility] Enrique MD right shoulder M19.041 Primary osteoarthritis, right hand M75.81 Other shoulder lesions, right shoulder Assessments Date Code Description Provider 10/11/2019 C78.00 Secondary malignant neoplasm of Karl Martinez M.D. unspecified lung 10/11/2019 R13.10 Dysphagia, unspecified Karl Martinez M.D. 10/11/2019 M62.81 Muscle weakness (generalized) Karl Martinez M.D. 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 08/16/2019 C78.00 Secondary malignant neoplasm of Zuly Linder M.D. unspecified lung 08/16/2019 R13.19 Other dysphagia Zuly Linder M.D. 08/16/2019 C54.1 Malignant neoplasm of endometrium Zuly Linder M.D. 08/16/2019 I10 Essential (primary) hypertension Zuly Linder M.D. 08/16/2019 M79.601 Pain in right arm Zuly Linder M.D. 08/16/2019 F32.9 Major depressive disorder, single episode, Zuly Linder M.D. unspecified 08/15/2019 R13.19 Other dysphagia David Rao MD 08/15/2019 W19.xxxA Unspecified fall, initial encounter Lilliana Mayorga M.D. 08/15/2019 R13.10 Dysphagia, unspecified Zuly Linder M.D. 08/15/2019 M25.521 Pain in right elbow Lilliana Mayorga M.D. 08/15/2019 M79.601 Pain in right arm Zuly Linder M.D. 08/15/2019 C78.00 Secondary malignant neoplasm of Zuly Linder M.D. unspecified lung 08/15/2019 C54.1 Malignant neoplasm of endometrium Zuly Linder M.D. 08/14/2019 R13.10 Dysphagia, unspecified ANDREA Macario 08/14/2019 C34.90 Malignant neoplasm of unspecified part of ANDREA Macario unspecified bronchus or lung 08/14/2019 E87.6 Hypokalemia ANDREA Macario 08/14/2019 I10 Essential (primary) hypertension ANDREA Macario 07/20/2019 M75.51 Bursitis of right shoulder Marquise Enrique MD 07/20/2019 M75.81 Other shoulder lesions, right shoulder Marquise Enrique MD 06/22/2019 M75.51 Bursitis of right shoulder Marquise Enrique MD 06/22/2019 M19.041 Primary osteoarthritis, right hand Marquise Enrique MD 06/22/2019 M75.81 Other shoulder lesions, right shoulder Marquise Enrique MD 05/02/2019 M75.51 Bursitis of right shoulder Marquise Enrique MD 05/02/2019 M19.041 Primary osteoarthritis, right hand Marquise Enrique MD 05/02/2019 M75.81 Other shoulder lesions, right shoulder Marquise Enrique MD Plan of Treatment 10/11/2019 - Karl Martinez M.D.C78.00 Secondary malignant neoplasm of unspecified lungR13.10 Dysphagia, iezfzbtaqnzK87.81 Muscle weakness (generalized )[facility] disease, unspecifiedFollow up:2 weeks Functional Status Description No Information Available Mental Status Description No Information Available Referrals Description No Information Available
[2019-10-11] MEDS ORDERED: NS 0.9% 1000 ML** 1,000 ML IV SCH (11:00)
[2019-10-11 12:55] LABS: ABS Lymphocytes 1.1 10^3/ul (1.0-4.8); ABS Monocytes 0.4 10^3/ul (0-0.8); ABS Neutrophils 2.9 10^3/ul (1.5-7.7); Eosinophil % 0.6 %; Hematocrit 40 % (35-47); Hemoglobin 13.5 g/dL (12.0-16.0); Lymphocyte % 25.3 %; Mean Corpuscular HGB Conc 34 g/dL (31-36); Mean Corpuscular Hemoglobin 31 pg (27-31); Mean Corpuscular Volume 90 fL (80-97); Mean Platelet Volume 10.6 fL (7.4-10.4); Platelet Count 138 10^3/uL (150-450); Red Blood Count 4.39 10^6 /uL (3.70-4.87); Red Cell Distribution Width 13 % (10-15); White Blood Count 4.4 10^3/uL (3.5-10.8)
[2019-10-11 13:19] LABS: ALT 20 U/L (7-52); AST 22 U/L (13-39); Albumin 3.9 g/dL (3.2-5.2); Albumin/Globulin Ratio 1.6 (1-3); Alkaline Phosphatase 75 U/L (34-104); Anion Gap 10 mmol/L (2-11); BUN/Creatinine Ratio 21.1 (8-20); Blood Urea Nitrogen 12 mg/dL (6-24); C Reactive Protein < 1.00 mg/L (<8.01); CO2 Carbon Dioxide 24 mmol/L (22-32); Calcium 9.8 mg/dL (8.6-10.3); Chloride 108 mmol/L (101-111); EGFR African American 124.1 (>60); EGFR Non-African American 102.6 (>60); Globulin 2.5 g/dL (2-4); Glucose 90 mg/dL (70-100); Potassium 3.8 mmol/L (3.5-5.0); Sodium 142 mmol/L (135-145); Total Protein 6.4 g/dL (6.4-8.9)
[2019-10-11] MEDS ORDERED: hydrALAZINE IV* 20 MG/ML VIAL IV SLOW PU PRN (13:40)
[2019-10-11] MEDS: Heparin VIAL(*) 5000 UNITS/ML VIAL (FIVE THOUSAND) SUBCUT SCH ×2 (13:54→21:23)
[2019-10-11 14:02] LABS: Body Fluid Source Cerebral Spinal
[2019-10-11 14:15] LABS: CSF Glucose 64 mg/dL (40-70)
--- NOTE | 2019-10-11 14:54 | BRIEFOPN ---
Brief Operative/Procedure Note - Operation Details Pre-Op Diagnosis: Weakness Post-Op Diagnosis: Weakness Procedures: Lumbar Puncture Surgeon(s)/Proceduralists: Maged George Anesthesia: 3 cc 1% Lidocaine without epi Findings: Risks and benefits of the procedure were discussed wtih the patient and her daughter including infection, bleeding, local pain, headaches and nerve damage. Consent was signed, dated, witnessed and in the chart. A time out was performed. Sterile technique was used throughout the procedure. The area was cleaned with betadine solution and draped. L3-4 space was palpated at the level of the iliac crest and marked. 3 cc of 1% Lidocaine without epi was injected subcuntaneously at two different points for good pain control. The spinal needle was introduced in 3 passes with eventual return of serosangenous spinal fluid that cleard after several drops. Opening pressure could not be obtained. 4 tubues of 2cc each, clear spinal fluid was collected. Each tube was labled, dated and initialed and sent to the lab for further studies. Good hemostasis was acheived and the area was cleaned and bandaged. The patient tolerated the procedure well. Specimen(s)/Culture(s) Description: 4 tubes of 2 cc each, clear spinal fluid Complications: None
--- NOTE | 2019-10-11 15:14 | HP ---
CC: Dr. Hawley; Dr. Escobedo; Dr. Martinez; Dr. Johnson HISTORY AND PHYSICAL: DATE OF ADMISSION: 10/11/19 TIME OF EVALUATION: 10:55 a.m. PRIMARY CARE PROVIDER: Dr. Hawley. ONCOLOGIST: Dr. Escobedo at [facility]. REFERRING NEUROLOGIST: Dr. Martinez. CONSULTING NEUROLOGIST: Dr. Johnson. CHIEF COMPLAINT: "I am very weak." HISTORY OF PRESENT ILLNESS: Ms. 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 At that time, she had a swallow evaluation and she was diagnosed with pharyn geal esophageal dysphagia. The original plan was for the patient to follow up with her PCP as outpat ient and if her symptoms persisted, then she would see Dr. Rao as outpatient for an upper endosco py. Unfortunately, the patient's symptoms continued to progress. On top of her dysphagia, she developed progressive weakness and falls. She developed right arm weakness to the point that she developed a f rozen right shoulder. This was followed by generalized weakness, difficulty swallowing and so far franco de león has lost 20 pounds. Her daughter also noted that she had voice changes that she would get more tir ed throughout the day, so she was referred to Neurology and saw Dr. Martinez today, who referred her t o [facility] for further evaluation as he was concerned with the possibility of upper motor neuron disease, especially ALS. The patient denies chest pain, palpitations, nausea, vomiting, diarrhea or other complaints. PAST MEDICAL HISTORY: 1. Metastatic endometrial cancer with lung metastasis, on anastrazole, being followed by Dr. Escobedo at [facility]. 2. Hypertension. 3. Depression. PAST SURGICAL HISTORY: 1. Status post hysterectomy. 2. Status post cholecystectomy. 3. Status post left breast biopsy. MEDICATIONS: Medication list is not available at this time. ALLERGIES: The patient gets GI upset with MEPERIDINE. FAMILY HISTORY: The patient's maternal grandmother from [place]. Mother had lung cancer. Father an d brother had diabetes. SOCIAL HISTORY: The patient does not endorse any history of tobacco or drug use. She used to have gl ass of wine, but very sporadic. She is a retired administrative program specialist and her passed thi s past July. Surrogate decision maker is her daughter, Cecilio Lundberg, phone number is [phone] . REVIEW OF SYSTEMS: A 14-point review of systems was performed and all the pertinent negative and pos itive findings are in the HPI. PHYSICAL EXAMINATION GENERAL: The patient is a frail-appearing elderly lady, lying in bed, appears to be tired, but in no acute distress. VITAL SIGNS: Temperature 98.1, heart rate is 87, respiratory rate is 18, oxygen saturation 100% on r oom air, blood pressure is 175/91. HEENT: Pupils are equal. Moist mucous membranes. The patient has tongue fasciculations. CHEST: Breath sounds bilaterally with no added sounds. CVS: Normal S1 and S2. Regular rate and rhythm with systolic murmur. ABDOMEN: Soft, nontender. Bowel sounds present. EXTREMITIES: There is no edema. NEUROLOGIC: The patient is alert, awake, and oriented x3. She has marked atrophy of the intrinsic m uscles of the right hand, right forearm and bilateral proximal upper extremity muscles. She has sign ificant spasticity in the right upper extremity and moderate on the left. I did not see any upper ex tremity fasciculations during my examination, but Dr. Martinez described some when he saw her. 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 There is also significant proximal hip flexor weakness with intact sensation in al l 4 extremities. She is hyperreflexic on all 4 extremities with clonus in all limbs and also bilater al Babinski signs. She states that she was very tired, so I did not attempt to ambulate her, but as per Dr. Martinez's note, her gait was described as frail with stiff legs, although she was able to amb ulate independently. ASSESSMENT AND PLAN: Ms. Joseph Chavez is a 79-year-old female with a past medical history of meta static endometrial cancer with lung metastasis, hypertension, depression, who has had progressive dys phagia, now with highly progressive weakness suspicious for amyotrophic lateral sclerosis. 1. 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 She has a clinical picture of weakness with muscle atrop hy, spasticity, diffuse hyperreflexia, tongue fasciculation and dysphagia. Myasthenia gravis or a pa raneoplastic syndrome is in the differential, but her clinical symptom is very suggestive of a upper neuron disease and the suspicion is for amyotrophic lateral sclerosis. The patient will be admitted to the medical floor and as per Dr. Martinez's recommendations, she was seen in consultation by German christian. She will have an MRI of the brain and the cervical spine as well as EMG and other testing that Neurology deems necessary. She will be monitored with neuro checks. She will be seen by PT and OT a nd it appears that she is not safe to live independently as her daughter describes very frequent fall s, so we may have to look into subacute rehabilitation on discharge. 2. Dysphagia. The patient had a bedside swallow evaluation and she was not able to swallow and had signs of penetration when she attempted to. So, the plan is for her to have a video fluoroscopic sw allow study today and we will adjust her medications and diet depending on that result. 3,. Metastat ic endometrial carcinoma with lung metastasis. We will hold her anastrazole for now until we can cla rify her swallow function. 4. DVT prophylaxis. The patient has a score of 5 on the DVT Prophylaxis Assessment Guide and she wi ll have SCDs and subcutaneous heparin. 5. Code status was discussed with the patient and she wishes to be a full code. TIME SPENT: Approxi mately 50 minutes was spent with the patient and daughter interview, medical records review, physical examination to complete this admission. More than half the time spent [id number] with the patient and coordination of care. [id number]/[facility] #: [id number]
[2019-10-11 15:28] LABS: Rheumatoid Factor < 10 IU/mL (<15)
[2019-10-11 15:37] LABS: Myoglobin 21.7 ng/mL (14.3-65.8)
[2019-10-11 15:55] LABS: TSH (Thyroid Stimulating Horm) 0.75 mcIU/mL (0.34-5.60)
[2019-10-11 16:03] LABS: Free T4 0.97 ng/dL (0.61-1.12)
[2019-10-11 17:50] LABS: Folate 14.27 ng/mL (>3.99)
--- NOTE | 2019-10-11 18:00 | CONS ---
CC: Dr. Red Hawley; Dr. Karl Martinez.* CONSULTATION REPORT: DATE OF CONSULT: 10/11/19 PRIMARY CARE PHYSICIAN: Dr. Red Hawley. REASON FOR CONSULTATION: Weakness. HISTORY OF PRESENT ILLNESS: Ms. Radha Ruiz is a 79-year-old female with a history of endometrial cancer and lung nodules, who notes recently being put on anastrozole. Denies a history of breast cancer that she is aware of. She follows with Dr. Hawley and was seen today in clinic by Dr. Ian Martinez. I had an opportunity to review his workup and I will include a copy of his visit today in the chart. Dr. Martinez called me personally earlier today and requested that the patient be admitted to the hospital for workup for concern for possible ALS and she is being admitted for that workup. The daughter was at the bedside today and was able to give me some additional information. The patient was previously admitted in July 2019. At that time, she presented with worsening swallowing difficulties. She had had progressive dysphagia over several months, but right around the holiday Thanksgi she started to have more progressive swallowing difficulties, which included both food and liquids. She also fell at home at around that time and initial CT showed no acute issues. She did have a swallowing study and speech evaluation during her hospitalization, which showed pharyngeal esophageal dysphagia, but at that time was having adequate oral bolus control and I did have an opportunity to speak with the speech therapist today; he reported at that time she was not having any aspiration, it was recommended that she have a soft texture diet. She does have missing molars and strategies were given to the patient regarding swallowing. During that hospitalization, Orthopedics did see the patient as well for right elbow pain, but there was not report of any fracture. She did have "a right frozen shoulder," and with followup with Orthopedics as an outpatient, she was discharged home in stable condition. The patient and daughter notes that over the last several months she has continued to worsen. Her swallowing difficulties have progressed since July 2019, she has lost at least 20 pounds. Her daughter notes that her voice has changed in tone and tenor and does note a nasal quality. The daughter notes that she seems to be worsening very quickly that she gets very fatigued and weak throughout the day. She is needing help ambulating, although she denies any fall since July 2019. The weakness does not seem to be consistently fatigable, but worsens throughout the day. She does not have any real improvement with resting. The patient did note some shortness of breath with me and the daughter notes that she occasionally has been using accessory muscles to breathe. There has been no reported double vision. She was sent to Dr. Martinez urgently for evaluation given her rapid decline. 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 She did have a serum paraneoplastic panel done. I reviewed the results, which were normal. She reports having occasional tingling in her right hand, but this is not consistent and there are no aggravating or alleviating factors. She otherwise denies any focal numbness or tingling. She denies any bladder or bowel incontinence. She denies any neck pain or headaches. Currently, the patient is very concerned about her rapid decline in health. PAST MEDICAL HISTORY: As noted above, history of hypertension; depression, which she was recently started on sertraline back in July 2019; history of liver mass, which was treated with radiation in 2012. PAST SURGICAL HISTORY: Includes right shoulder surgery, left breast biopsy, sinus cyst, cholecystectomy, and hysterectomy. MEDICATIONS: Current outpatient medications include: 1. Lisinopril 2.5 mg daily. 2. Sertraline 25 mg daily. 3. Lomotil p.r.n. 4. Vitamin B12 injections. 5. Calciferol. 6. Arimidex 1 mg daily. ALLERGIES: MEPERIDINE. FAMILY HISTORY: Vascular disease, including a grandmother with heart attack, mother with lung cancer, father with diabetes, daughter with rheumatoid arthritis. There is no history of neuromuscular disease in the family that they are aware of. SOCIAL HISTORY: No tobacco use. Drinks socially, but very rarely. She is retired and . Her recently and she is grieving. She lives with her daughter now. REVIEW OF SYSTEMS: Review of systems in 14 organ systems as noted above. PHYSICAL EXAMINATION: Vital Signs: Temperature of 98.1, pulse of 87, respiratory rate 18, O2 saturation 100%, blood pressure 175/91. The patient is anxious at this time. On physical examination, in general, she is a well- developed, although very thin female in no acute distress, lying in her bed. She has some mild bitemporal wasting. She is normocephalic and atraumatic. Her sclera are anicteric. Mucous membranes are dry. Oropharynx is clear. Her neck is supple. Chest is clear to auscultation bilaterally. Cardiovascular shows a 3/6 systolic ejection murmur at the left sternal border. Abdomen is scaphoid, soft. Extremities: There is no significant clubbing, cyanosis, or edema. Her skin is warm and dry. Neurologic Exam: She is awake, alert, and oriented x3. Her speech is fluent with good recall. She has marked dysarthria with a nasal quality, difficulty making "ga, ka sounds." Her mood is dysthymic. Affect is congruent. Cranial Nerves: Pupils are equally round and reactive to light and accommodation. Extraocular movements are intact with no nystagmus, no ptosis on my examination. Visual rosales are full to confrontation. She does have weakness of the eyelids bilaterally to force closure. Facial sensation is intact to light touch. Tongue is midline with fasciculations noted throughout. There is scalloping appreciated. She has weakness of her sternocleidomastoid and trapezius bilaterally. She has weakness of her neck flexors 4/5, neck extensors 4+/5. Sensation is grossly intact to light touch and pinprick throughout. She has no focal deficits. Motor Exam: She is moving all of her extremities, but has marked weakness of her upper extremities. She has marked atrophy of her distal arms bilaterally, right greater than left, with atrophy of the hand intrinsics, right greater than left. She has limited range of motion in the right upper extremity due to some pain and she was having some pain today with range of motion proximally at the left upper extremity as well limiting the examination, but she appears to be weak in the proximal upper extremities as well. Upper Extremities: She has some spasticity in her right greater than left hand. She had weakness of both mail service coordinator and finger and wrist extensors bilaterally. She has marked spasticity of the upper extremities, right greater than left and some [id number] spasticity in the legs bilaterally. Proximally in the leg, she is 4/5; distally she was 4+ dorsiflexion and plantarflexion. DTRs were hyperactive. She had marked sustained clonus at the patella and ankles bilaterally. She had bilateral Babinski's. She had marked clonus in the upper extremities at the biceps and brachioradialis with several beats sustained. She had 4+ at the elbows bilaterally. Currently, the patient feels too weak to ambulate, although she did ambulate today into and out of clinic, but it was very slow and she needed assistance. DIAGNOSTIC STUDIES/LAB DATA: The paraneoplastic panel that was done earlier this month is negative. Lab work today includes a CBC with diff with a platelet count of 138 and MPV of 10.6. Complete metabolic profile with a BUN/creatinine ratio of 21.1, otherwise normal. CSF glucose and CSF total protein are normal, 64 and 30. There are multiple studies pending. Imaging: She has the chest CT as noted from 09/26/19 which showed stable pulmonary parenchymal nodularity. She had a brain CT done on 08/14/19, which was stable, showed no acute intracranial abnormality. She had an MRI of her right shoulder dated 08/03/19, which showed effusion within the subacromial subdeltoid bursa suggestive of bursitis and partial articular surface tears of the distal supraspinatus and infraspinatus tendons. ASSESSMENT AND PLAN: Ms. Joseph Chavez is a 79-year-old female who was seen today by Dr. Martinez in clinic, has a history of endometrial cancer with metastasis to the lungs that has been stable for some time, followed by Oncology , was seen urgently by Dr. Martinez for worsening weakness that has been going on for several months, was admitted to the hospital in July 2019 with dysphagia and workup at that time was nondiagnostic, but her dysphagia has worsened despite strategies to prevent aspiration therapy. Speech Therapy has seen her briefly this morning and a swallowing study has been ordered, but I spoke with the speech therapist who already notices worsening with some tendency towards aspiration. 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 Given that, she is being admitted to the hospital for additional workup. I just performed a spinal tap and protein and glucose are normal. Multiple studies are pending including a paraneoplastic panel on the spinal fluid as well as cytology and flow cytometry. I am also going to order an SPEP to look for any evidence of an M- spike, which could suggest underlying malignancy. Should there be any abnormality, I will order a 24 hour urine protein electrophoresis. She has a history of endometrial cancer with metastasis. Plan is to get an MRI of her brain with/without contrast to look for any evidence of carcinomatosis, which might cause some focal neurologic symptoms. In addition, although she does not have any neck pain, given the severe spasticity and atrophy in her arms more so than her legs, I do think an MRI of her cervical spine is appropriate to look for any central cord issues. I am going to order additional lab work including B12, folate, TSH, free T4, MARY KAY, anti-GM 1, CPK which is often elevated in motor neuron disease and myasthenia panel with anti-MuSk. Given her history of profound fatigue and swallowing difficulties, myasthenia gravis is certainly in the differential. I am going to order pulmonary function testing to establish a baseline. EMGs are to be done as well to look for evidence of motor neuron disease. Clearly, she is going to be risk for choking and we will need to have a discussion about the possibility of a PEG tube or J-tube should she be at high risk for aspiration. These are things that we will talk about once we have a little bit more information. I will continue to follow her closely and make further recommendations as necessary. Thank you for the opportunity to participate in the care of this very nice patient. [id number]/[facility] #: [id number] GREGOR
[2019-10-11] MEDS ORDERED: Gadoteridol* (CONTRAST) 279.3 MG/ML 10 ML IV ONE (19:48)
[2019-10-11] MEDS ORDERED: Ketorolac INJ* 15 MG/ML 1 ML VIAL IV PUSH PRN (20:06)
[2019-10-12] MEDS ORDERED: Morphine INJ* 2 MG/ML 1 ML SYRINGE (TWO MG - NEW SYRINGE VERSION) IV ONE (01:41)
[2019-10-12] MEDS ORDERED: Baclofen TAB* 10 MG PO PRN (01:41)
[2019-10-12] MEDS: Heparin VIAL(*) 5000 UNITS/ML VIAL (FIVE THOUSAND) SUBCUT SCH ×2 (06:23→15:07)
--- NOTE | 2019-10-12 09:03 | PN ---
Subjective Date of Service: 10/12/19 Length of Stay: 1 Days Interval History: No new issues overnight. Stable with continued difficulties swallowing. No worsening shortness of air. Continues to feel generalized weakness but mornings tend to be better. Eating modified consistency breakfast this am without difficulty MRI Brain: No acute abnormalities or evidence of inflammation/enhancement MRI C-spine: Mild DDD Family History: Unchanged from Admission Social History: Unchanged from Admission Past Medical History: Unchanged from Admission Objective Active Medications: Acetaminophen (Tylenol Tab*) 975 mg PO TID [facility] Baclofen (Lioresal Tab*) 5 mg PO TID PRN PRN Reason: SPASMS - MUSCLE Heparin Sodium (Porcine) (Heparin Vial(*)) 5,000 units SUBCUT Q8HR [facility] Last Admin: 10/12/19 06:23 Dose: 5,000 units Hydralazine HCl (Apresoline Iv*) 5 mg IV SLOW PU Q6H PRN PRN Reason: SBP>180 Sodium Chloride (Ns 0.9% 1000 Ml) 1,000 mls @ 75 mls/hr IV PER RATE [facility] Last Admin: 10/11/19 15:09 Dose: 75 mls/hr Ketorolac Tromethamine (Toradol Inj*) 15 mg IV PUSH Q6H PRN PRN Reason: PAIN - MODERATE Last Admin: 10/11/19 21:19 Dose: 15 mg Vital Signs 10/11/19 10/11/19 10/11/19 10:45 11:11 15:15 Temperature 98.1 F 97.2 F Pulse Rate 87 84 Respiratory 18 20 20 Rate Blood Pressure 175/91 162/83 (mmHg) O2 Sat by Pulse 100 99 Oximetry 10/11/19 10/11/19 10/11/19 15:45 21:02 21:23 Temperature 97.2 F 97.8 F Pulse Rate 84 74 Respiratory 20 18 20 Rate Blood Pressure 162/83 141/73 (mmHg) O2 Sat by Pulse 99 98 Oximetry 10/11/19 10/12/19 10/12/19 23:44 02:40 03:27 Temperature 98.3 F 97.0 F Pulse Rate 78 70 Respiratory 20 20 16 Rate Blood Pressure 154/70 144/72 (mmHg) O2 Sat by Pulse 97 97 Oximetry Intake and Output Last 24 Hours 10/10/19 10/11/19 10/12/19 10/13/19 06:59 06:59 06:59 06:59 Intake Total 786 Output Total 0 Balance 786 Weight 97 lb 4.8 oz Intake: IV Fluids 786 NS (0.9%) 786 Oral 0 Output: Urine 0 Other: # Bowel Movements 0 # Voids 0 Oxygen Devices in Use Now: Nasal Cannula Neurology Exam: General: Well developed but thin with bitemporal wasting HEENT: Normocephelic/atraumatic, sclera anicteric, mucous membranes moist. Tongue fasciculations Neck: Supple Chest: Clear to auscultation bilaterally Cardiovascular: Regular rate and rhythm without murmurs, rubs, gallops Abdomen: Soft, non-tender/non-distended Extremities: No clubbing, cyanosis, or edema Neurological Findings: Awake, alert, and oriented to person, place, and time. Speech: fluent with moderate dysarthria (better this am) Cranial Nerve: PERRL, EOMi, Face symmetric, hearing intact, tongue midline Motor: SMAE with atrophy and weakness of the upper extremities, R>L, frozen shoulder on the right with limited ROM. Spasticity UE>>LE, R>L with early claw hand deformity on the right LE: 4/5 proximally and 4+ distally bilaterally with mildly increased tone R>L. Fasciculations noted in the UEs Sensation: intact to LT/PP bilaterally upper and lower extremities Deep Tendon Reflex: Markedly increased throughout with sustained clonus at the patella, ankles, BC No resting tremor but difficulty with FtoN Result Diagrams: 10/11/19 12:42 10/11/19 12:42 Microbiology and Other Data: Microbiology 10/11/19 13:20 CSF Gram Stain (Tube 3) - Final Cerebral Spinal Fluid Assessment/Plan Ms. Joseph Chavez is a 79-year-old female who was seen today by Dr. Martinez in clinic, has a history of endometrial cancer with metastasis to the lungs that has been stable for some time, followed by Oncology, was seen urgently by Dr. Martinez for worsening weakness that has been going on for several months, was admitted to the hospital in July 2019 with dysphagia and workup at that time was nondiagnostic, but her dysphagia has worsened despite strategies to prevent aspiration therapy. Speech Therapy has seen her briefly this morning and a swallowing study has been ordered, but I spoke with the speech therapist who already notices worsening with some tendency towards aspiration. On examination, she has marked upper/lower motor neuron findings suggestive of a motor neuron disease. Given that, she is being admitted to the hospital for additional workup. EMG consistent with MND. Spinal fluid to date is negative. MRI of the brain and C-spine show no obvious causes of her symptoms. Multiple studies are pending but I am fairly certain given the constellation of findings and EMG/NCS that she is suffering from ALS. At this point, we will need to engage secondary social studies teacher to help with myriad of issues she will face: --Nutrition consult pending. Will likely need PEG in the near future --Will need O/P Pulmonary consult to consider Trilogy for breathing, discuss the possibility of Trach down the line --Mobilization is a major issues: Will need to consider possible motorized wheelchair --Will need modifications to her house for accessibility. --Consider Riluzole once workup is complete --Will need close follow up with Dr. Martinez upon discharge. Thank you for the opportunity to participate in the care of this very nice patient.
[2019-10-12] MEDS: Acetaminophen TAB* 325 MG PO SCH ×2 (10:06→10:10)
[2019-10-12] MEDS ORDERED: Lisinopril TAB* 5 MG PO SCH (11:15)
[2019-10-12] MEDS: Acetaminophen ADULT LIQ* 650 MG/20.3 ML UDC PO SCH ×2 (11:40→15:05)
[2019-10-12 14:12] LABS: Albumin 3550 mg/dL; CSF Albumin 13.7 mg/dL (<=27.0); CSF IGG 1.3 mg/dL (<=8.1); Immunoglobulin G 777 mg/dL (767 - 1590)
[2019-10-12 15:44] LABS: HSV 1 PCR, CSF Negative (Negative); HSV 2 PCR, CSF Negative (Negative)
--- NOTE | 2019-10-12 16:03 | PN ---
Hospitalist Progress Note Date of Service: 10/12/19 Patient will need a wheelchair at discharge to assist with ADLs within the home.
[2019-10-12 16:23] VITALS: BP 159/66
[2019-10-12 16:40] LABS: Oligoclonal Proteins Interpret 0 bands (<4)
[2019-10-12 17:04] LABS: CSF VDRL Negative (Negative)
--- NOTE | 2019-10-12 19:15 | CONSULT ---
Consult Consult: Date of Service: 10/12/19 Patient: TIFFANIE LYN /Age: 07 1940 79 Admission Date: 10/11/19 Requesting Provider: Lexa MENDEZ ([facility] Hospitalist Service) Reason for consultation: Necessity for percutaneous gastrostomy tube in a woman recently diagnosed with ALS. HISTORY OF PRESENT ILLNESS: The patient's daughter,Cecilio Lundberg, was present during her inpatient consultation and supplemented her mother's clinical history. Ms. Ruiz is a 79-year-old female with a past medical history of metastatic endometrial cancer with lung metastasis, hypertension, depression, who was admitted to [facility] in July with dysphagia. At that time, she had a swallow evaluation and she was diagnosed with pharyngeal esophageal dysphagia. The patient's symptoms continued to progress. In addition to her dysphagia, she developed progressive weakness and falls. She developed right arm weakness to the point that she developed a frozen right shoulder. This was followed by generalized weakness, difficulty swallowing and so far she has lost 20 pounds in the past 2 months. During this hospital admission she was diagnosed with amyotrophic lateral sclerosis. The patient and her daughter report increasingly severe dysphagia which has prevented adequate nutritional intake. The patient has experienced 20 pounds of unintentional weight loss in the past 2 months. At the time of inpatient consultation, the patient denies headache, abrupt visual change, chest pain, shortness of breath or abdominal pain. Interventional radiology was consult at for placement of a percutaneous gastrostomy tube. The patient states that she believes she can lay flat for the course of a procedure. She denies dyspnea when laying flat. PAST MEDICAL HISTORY: 1. Metastatic endometrial cancer with lung metastasis, on anastrazole, being followed by Dr. Escobedo at [facility]. 2. Hypertension. 3. Depression. PAST SURGICAL HISTORY: 1. Status post hysterectomy. 2. Status post cholecystectomy. 3. Status post left breast biopsy. ALLERGIES: The patient gets GI upset with MEPERIDINE. FAMILY HISTORY: The patient's maternal grandmother from [place]. Mother had lung cancer. Father and brother had diabetes. SOCIAL HISTORY: The patient does not endorse any history of tobacco or drug use. She used to have glass of wine, but very sporadic. She is a retired senior administrative assistant and her passed this past July. Surrogate decision maker is her daughter, Cecilio Lundberg, phone number is [phone]. REVIEW OF SYSTEMS: A 14-point review of systems was performed and all the pertinent negative and positive findings are in the HPI. PHYSICAL EXAMINATION: Selected Entries 10/12/19 15:39 Temperature 97.3 F Pulse Rate 71 Respiratory 18 Rate Blood Pressure 159/66 (mmHg) Blood Pressure 97 Mean O2 Sat by Pulse 98 Oximetry GENERAL: The patient is a frail-appearing elderly lady, sitting up in bed, in no acute distress. HEENT: Pupils are equal. Moist mucous membranes. The oropharynx is clear with a class II Mallampati score. The nasopharynx is grossly clear. The patient can breathe through her nose with her mouth closed. CHEST: Breath sounds bilaterally with no added sounds. CVS: Normal S1 and S2. Regular rate and rhythm with systolic murmur. ABDOMEN: Soft, nontender. Bowel sounds present. EXTREMITIES: There is no edema. RELEVANT IMAGING: A CT of the chest dated 09/26/2019 was reviewed demonstrating normal anatomic location of the stomach. RELEVANT LABS: Laboratory Tests 10/11/19 10/11/19 12:42 13:20 WBC 4.4 RBC 4.39 Hgb 13.5 Hct 40 Plt Count 138 L Albumin 3550 ASSESSMENT: 79-year-old female with an unintentional 20 pound weight loss the past 2 months due to progressive dysphagia related to recently diagnosed amyotrophic lateral sclerosis. Interventional radiology has been consult for a percutaneous gastrostomy tube that I agree is appropriate. As I discussed with the patient and her daughter, this can be scheduled as an outpatient the following week. I described the procedure, the necessity for an overnight observation as well as the risks involved. The patient and her daughter are agreeable to percutaneous gastrostomy tube placement. PLAN: 1. Percutaneous gastrostomy tube placement with ultrasound and fluoroscopic guidance will be scheduled as an outpatient the week of 10/16/2019. 2. An overnight observation will be required.
--- NOTE | 2019-10-13 00:33 | DS ---
CC: Dr. Hawley; Dr. Karl Martinez; Dr. Monica Gilmore; Dr. Florentino Cote * DISCHARGE SUMMARY: DATE OF ADMISSION: 10/11/19 DATE OF DISCHARGE: 10/12/19 PRIMARY CARE PROVIDER: Dr. Hawley. MY ATTENDING WHILE IN THE HOSPITAL: Dr. Zuly Guaman.* (DICTATED BY ANDREA JUSTIN) OUTPATIENT NEUROLOGIST: Dr. Karl Martinez. OUTPATIENT CONSULTING DESIGN EDITOR: Dr. Monica Gilmore. OUTPATIENT INTERVENTIONAL RADIOLOGIST: Dr. Florentino Cote. PRIMARY DISCHARGE DIAGNOSES: 1. Amyotrophic lateral sclerosis. 2. Dysphagia. SECONDARY DISCHARGE DIAGNOSES: 1. History of endometrial cancer with lung metastases, stable. 2. Hypertension. 3. Depression. MEDICATIONS AT DISCHARGE: 1. Anastrozole 1 mg p.o. q.48 hours. 2. Lisinopril 2.5 mg p.o. daily. 3. Vitamin B12 injection 1000 mcg IM every 2 weeks. 4. Sertraline 25 mg p.o. daily. 5. Vitamin D 2000 units p.o. daily. 6. Baclofen 5 mg p.o. t.i.d. New medications on discharge: Baclofen. Medication discontinued on discharge: None. STUDIES DONE WHILE IN THE HOSPITAL: Videofluoroscopic swallow evaluation from 10/11/19 read as swallowing function shows residual in the vallecula after swallowing, some penetration into the trachea with no kemi aspiration. Brain MRI read as no acute intracranial abnormality. Cervical spine MRI read as mild degenerative disk disease, no spinal canal stenosis. Pathology from cerebrospinal fluid read as negative for malignant cells. Electromyogram read as abnormal study. Electrographic evidence strongly supports the diagnosis of progressive motor neuron disease including ALS involving the bulbar, cervical, thoracic, and lumbar regions. HOSPITAL COURSE: This is a brief summary of the patient's presentation. For more details, please see history and physical from Dr. Zuly Guaman on . In brief, the patient is a 79-year-old female with a past medical history significant for above who has had several months of worsening swallowing difficulty, weakness, and weight loss up to 20 pounds. The patient was referred to her neurologist, Dr. Ian Martinez, who thought her condition was consistent with rapidly progressive amyotrophic lateral sclerosis and she was referred to the hospital for expedited evaluation. In the hospital, the patient was seen in consultation by Dr. Ambrose Johnson of Neurology. The patient had the above studies showing no abnormalities in the brain or cervical spine. The patient had EMG studies consistent with ALS and she had swallow evaluation showing [id number] and a pureed honey thickened liquid diet was recommended, though the patient still had some clinical signs of aspiration with this diet. Additional means of nutritional support was recommended. The patient's presumptive diagnosis of ALS was discussed with the patient several times and the progressive nature of this was discussed and seemed to be understood. The patient and her daughter are interested in aggressive treatment at this time, would be primarily interested in PEG tube for nutritional support based on the patient's weight loss was very concerning. Investigation of the patient having a PEG tube while inpatient was undertaken, but it would not be available until Wednesday10/16/19 and there is no other compelling reason to keep the patient in the hospital for that time. The patient's case was discussed with Dr. Johnson, who stated the patient was stable for transition to outpatient management for her ALS, but recommended FVC and negative inspiratory force, both of which were found to be abnormal at 1.3 L and negative 20. It is recommended the patient follow up with Dr. Gilmore for full pulmonary function testing and consideration for Trilogy machine as well as establishment of care as the patient may at some point need a tracheostomy as her ALS progresses. The patient was stable and amenable for discharge on . PHYSICAL EXAMINATION ON THE DAY OF DISCHARGE: General: The patient is a 79- year- old female who appears as stated age, is emaciated and sitting in the bed , in no acute distress. Vital Signs: At the time of discharge, temperature 97.3 , pulse rate 100, respiratory rate 18, oxygen saturation 98% on room air, blood pressure 159/66. HEENT: Head normocephalic, atraumatic. Sclerae anicteric. No conjunctival injection. Nasal mucosa moist. Oral mucosa moist. No pharyngeal erythema, discharge, or exudate. Neck: Supple, nontender. No lymphadenopathy. No carotid bruit auscultated. No JVD. Cardiac: Regular rate and rhythm. No clicks, murmurs, gallops, or rubs. Pulses 2+ in bilateral dorsalis pedis, posterior tibialis, and radial areas. Respiratory: Clear to auscultation bilaterally. No wheezes, rales, or rhonchi. Good air exchange bilaterally. Abdomen: Soft, nontender, nondistended. Bowel sounds present and normoactive in all 4 quadrants. No hepatosplenomegaly. No abdominal bruits auscultated. No hepatojugular reflux. Genitourinary: No suprapubic tenderness or CVA tenderness. Skin: Clean, dry, and intact. No rash. Neuro: Diffuse weakness and significant spasticity throughout. Minimal movement in the right upper extremity. Psychiatric: Pleasant and cooperative. DISCHARGE PLAN: 1. Amyotrophic lateral sclerosis. The patient has been presumptively diagnosed with ALS via EMG studies. The patient had a lumbar puncture, on which many studies were sent including SPEP, paraneoplastic panel, Lyme, oligoclonal bands, herpes, VDRL, JACQUI inhibitor. The patient also had IgG, rheumatoid factor, myasthenia gravis panel, and MARY KAY. The only positive result from the patient's lab work so far is an MARY KAY of 4, which is mildly elevated and likely not diagnostic for anything given the high false positive rate of this test. The patient should follow up closely with Dr. Martinez to discuss pharmacologic treatment to help decrease the progression of her ALS. The patient should follow up with Dr. Cote on either Wednesday or Wednesday depending on his availability for placement of a PEG tube and then with visiting nurse services for outpatient nutrition consult and initiation of tube feeds. The patient will be continued on pureed texture and honey-thickened liquids as above with free water trials in between. The patient understands that she is at risk for aspiration even with this restricted diet and will be cautious and use speech therapy recommended techniques to help reduce the risk of aspiration. The patient is showing early signs of respiratory dysfunction from her ALS and will follow up with Dr. Gilmore for evaluation for further respiratory support and full pulmonary function testing. The patient will get physical therapy and occupational therapy at home via visiting nurse services as well to maximize independence. The patient requires wheelchair for independence with ADLs in home. The patient will have baclofen as above for spasms. 2. History of endometrial cancer with lung metastases. This appears to be stable. Continue the patient's anastrozole at this time. 3. Hypertension. Continue the patient's lisinopril. The patient was mildly hypertensive while inpatient. This should be followed up with her primary care provider. DISPOSITION: Home. CONDITION: Stable. TIME SPENT: Approximately 60 minutes was spent on this discharge, 30 of which spent [id number] with the patient obtaining history and physical and discussing the treatment plan. ANDREA JUSTIN [id number]/CPS #: [id number] GREGOR
[2019-10-14 11:10] LABS: Albumin 3.1 g/dL (3.4-4.7); Albumin/Globulin Ratio 1.05; Gamma Globulin 0.8 g/dL (0.6-1.6); Total Protein(PEP) 6.1 g/dL (6.3 - 7.9)
[2019-10-17 10:45] LABS: Anti-Striated Muscle Antibody Negative titer (<1:120)
[2019-10-31 16:37] LABS: Asialo GM1 IgG Antibody Negative (Negative); Asialo GM1 IgM Antibody Negative (Negative); Disialo GD1b IgG Antibody Negative (Negative); Disialo GD1b IgM Antibody Negative (Negative); Monosialo GM1 IgG Antibody Negative (Negative); Monosialo GM1 IgM Antibody Negative (Negative)
== END 2019-10-12 15:20 | disposition home or self-care (01) ==
LOC: INTOOBSV 10:33 → MED 10:33
PROVIDERS: ADMIT Internal Medicine; ATTEND Internal Medicine
DX: G12.21 Amyotrophic lateral sclerosis (principal); R13.10 Dysphagia, unspecified; I10 Essential (primary) hypertension; F32.9 Major depressive disorder, single episode, unspecified; Z79.899 Other long term (current) drug therapy; C54.1 Malignant neoplasm of endometrium; C78.00 Secondary malignant neoplasm of unspecified lung; Z90.710 Acquired absence of both cervix and uterus; Z87.19 Personal history of other diseases of the digestive system
CPT/HCPCS: 36415; 70553; 72156; 74230; 80053; 82164; 82550; 82607; 82746; 82784; 82945; 83519; 83520; 83874; 83916; 84155; 84157; 84165; 84439; 84443; 85025; 85652; 86038; 86140; 86255; 86431; 86592; 86617; 86618; 87070; 87205; 87529; 88112; 88184; 88187; 88188; 88189; 89051; 94150; 95869; 95886; 95913; 96372; 96374; 96375; A9270-GY; A9579; G0378; J1644; J1885; J2270

== ENCOUNTER 2019-10-20 13:57 | Observation (INO) | payer MEDICARE ==
[2019-10-20 14:57] LABS: Mean Platelet Volume 10.9 fL (7.4-10.4); Platelet Count 162 10^3/uL (150-450)
[2019-10-20] MEDS ORDERED: ceFAZolin 1 GM in Dextrose (*) 1 GM/50 ML BAG IVPB ONE (15:00)
[2019-10-20 15:18] LABS: Activated Partial Thrombo Time 31.2 seconds (26.0-38.0); INR 1.01 (0.82-1.09)
[2019-10-20] MEDS ORDERED: Lidocaine 2% JELLY* 6 ML JELLY TOPICAL ONE (15:46)
[2019-10-20] MEDS ORDERED: Midazolam* 1 MG/ML 2 ML VIAL (2 MG) ONE (15:46)
[2019-10-20] MEDS ORDERED: Naloxone* 0.4 MG/ML 1 ML VIAL ONE (15:46)
[2019-10-20] MEDS ORDERED: fentaNYL* 50 MCG/ML 2 ML VIAL (100 MCG VIAL) ONE (15:46)
[2019-10-20] MEDS ORDERED: Glucagon* 1 MG VIAL IV ONE (16:00)
[2019-10-20] MEDS ORDERED: Flumazenil* 0.1 MG/ML 5 ML MDV ONE (16:15)
[2019-10-20] MEDS ORDERED: Bupivacaine 0.5% SDV PF* 30ML VIAL ONE (16:29)
[2019-10-20] MEDS ORDERED: Bupivacaine 0.25% SDV PF* 10 ML VIAL INJ ONE (16:29)
[2019-10-20] MEDS ORDERED: Senna TAB 8.6 mg* TAB PO PRN (18:55)
[2019-10-20] MEDS ORDERED: Al Hydrox/Mg Hydrox/Simet LIQ* 30 ML UDC PO PRN (18:55)
[2019-10-20] MEDS ORDERED: Ondansetron INJ* 2 MG/ML VIAL IV PRN (18:55)
[2019-10-20] MEDS ORDERED: NS 0.9% KEEP VEIN OPEN IV SCH (19:00)
[2019-10-20] MEDS ORDERED: NS 0.9% 1000 ML** 1,000 ML IV SCH (19:00)
[2019-10-20] MEDS ORDERED: Baclofen TAB* 10 MG PO PRN (19:07)
--- NOTE | 2019-10-20 20:58 | HP ---
CC: Dr. Hawley * HISTORY AND PHYSICAL: DATE OF ADMISSION: 10/20/19 ATTENDING PHYSICIAN WHILE IN THE HOSPITAL: Dr. Olu Hoff * (dictated by ANDREA Escamilla). INTERVENTIONAL RADIOLOGIST: Dr. Cote. PRIMARY CARE DOCTOR: Dr. Hawley. CHIEF COMPLAINT: PEG tube placement. HISTORY OF PRESENT ILLNESS: Radha Ruiz is a 79-year-old white female with past medical history significant for recently diagnosed ALS, endometrial cancer with lung metastasis, hypertension, depression, who presents for elective PEG tube placement with Dr. Cote in Interventional Radiology Department. The patient has had progressive dysphagia related to her ALS and all elected for PEG tube placement today. Dr. Cote asked that she be directly admitted from the radiology department for overnight observation after her placement and for pain control. The patient is evaluated on the floor after her procedure. She is having minimal amounts of pain at the site of her PEG tube placement but overall is not overly uncomfortable. She denies nausea, vomiting, chest pain, difficulty breathing, fevers, or chills. She is interested in eating a meal today and otherwise has no additional complaints. PAST MEDICAL HISTORY: 1. Endometrial cancer with lung metastasis. 2. Hypertension. 3. Depression. 4. ALS. PAST SURGICAL HISTORY: 1. Total hysterectomy. 2. Cholecystectomy. 3. Left breast biopsy. 4. Status post PEG tube placement today. HOME MEDICATIONS: 1. Baclofen 5 mg p.o. t.i.d. p.r.n. muscle spasms. 2. Arimidex 1 mg p.o. q.48 hours. 3. Lisinopril 2.5 mg p.o. daily. 4. Zoloft 25 mg p.o. daily. 5. Vitamin B12 1000 mcg IM every 2 weeks. ALLERGIES: GI upset to MEPERIDINE. FAMILY HISTORY: Mother of lung cancer. Father of heart failure and he had a history of diabetes mellitus type 2. Her brother has a history of diabetes mellitus type 2. SOCIAL HISTORY: The patient is . She is a retired events administrative assistant. She is currently living with her daughter. She only has 1 child. She denies tobacco use, alcohol use, drug use. She has never been a smoker. The patient's daughter, Cecilio Lundberg, is her surrogate medical decision maker should she need one. REVIEW OF SYSTEMS: An 11-point review of systems was completed and all pertinent positives and negatives are above in the HPI. All other systems are negative. PHYSICAL EXAMINATION GENERAL: Thin, elderly white female, lying in hospital bed, appearing comfortable, in no acute distress. Daughter at bedside. VITAL SIGNS: Temperature 98.7 degrees Fahrenheit, pulse 67, respiratory rate 16 , oxygen saturation 99% on room air, blood pressure 154/70. HEENT: Eyes: PERRL. Sclerae anicteric. ENT: Mucous membranes, lips appear dry, but tongue appears moist. LUNGS: Clear to auscultation throughout. CARDIO: Regular rate and rhythm without murmurs, rubs, or gallops. ABDOMEN: Dressing and PEG tube in place. Dressing is clear, dry, and intact. No abdominal pain with palpation. Abdomen is soft and nondistended. EXTREMITIES: Thin. No clubbing, cyanosis or edema. NEUROLOGIC: The patient's speech is slowed. 3/5 weakness in bilateral upper extremities and lower extremities. The patient is alert and oriented x3. DIAGNOSTIC STUDIES/LAB DATA: Platelet count 162, MPV 10.9. INR 1.01. PTT 31.2. ASSESSMENT AND PLAN: Radha Ruiz is a 79-year-old white female with past medical history significant for metastatic endometrial cancer, hypertension, depression, amyotrophic lateral sclerosis, who presents for elective tube placement for her progressive dysphagia today. The patient will be admitted OBV for: 1. Status post percutaneous endoscopic gastrostomy tube placement for dysphagia. The patient is status post percutaneous endoscopic gastrostomy tube placement today with Dr. Cote, Interventional Radiology. The patient is to have tube feeds as ordered by Dr. Cote as well as normal saline ordered. She may eat by mouth as that she would like and I have ordered regular diet with honey thickened liquids. Dr. Martinez, her outpatient neurologist, has been made aware of her hospital stay and I have ordered pain medication. We will monitor her pain. 2. Hypertension. I will continue the patient's home lisinopril. 3. Depression. I will continue the patient's home Zoloft. 4. Endometrial cancer. I will continue the patient's home anastrozole. 5. FEN: Diet as previously mentioned, fluids as previously mentioned. Electrolytes, I will be checking tomorrow morning. 6. DVT prophylaxis: Dr. Cote tells me that her recent PEG tube placement is not an issue for receiving chemo prophylaxis and I will order 30 mg of subcu Lovenox. 7. Code status: The patient is do not resuscitate/do not intubate. I have updated her MOLST. This case has been reviewed by my attending, Dr. Olu Hoff, he agrees with this plan of care. TIME SPENT: Approximately 40 minutes was spent on this admission, approximately half of the time was spent at bedside evaluating the patient and discussing plan of care. ANDREA ESCAMILLA [id number]/CPS #: [id number] MTDD
[2019-10-20] MEDS: oxyCODONE TAB* 5 MG TAB PO PRN (21:31)
[2019-10-20] MEDS: Enoxaparin(*) 30 MG/0.3 ML SYR SUBCUT SCH (21:32)
[2019-10-21] MEDS: oxyCODONE TAB* 5 MG TAB PO PRN ×4 (02:55→22:45)
[2019-10-21] MEDS: Sertraline* 25 MG TAB PO SCH (08:19)
[2019-10-21] MEDS: Lisinopril TAB* 5 MG PO SCH (08:20)
[2019-10-21 08:30] LABS: Calcium 9.3 mg/dL (8.6-10.3); EGFR African American 132.1 (>60); EGFR Non-African American 109.2 (>60); Potassium 3.9 mmol/L (3.5-5.0)
[2019-10-21 08:31] LABS: ABS Lymphocytes 0.9 10^3/ul (1.0-4.8); ABS Monocytes 0.5 10^3/ul (0-0.8); ABS Neutrophils 5.4 10^3/ul (1.5-7.7); Eosinophil % 0.4 %; Hematocrit 38 % (35-47); Hemoglobin 12.6 g/dL (12.0-16.0); Lymphocyte % 13.2 %; Mean Corpuscular HGB Conc 34 g/dL (31-36); Mean Corpuscular Hemoglobin 31 pg (27-31); Mean Corpuscular Volume 91 fL (80-97); Mean Platelet Volume 10.9 fL (7.4-10.4); Platelet Count 136 10^3/uL (150-450); Red Blood Count 4.14 10^6 /uL (3.70-4.87); Red Cell Distribution Width 13 % (10-15); White Blood Count 6.8 10^3/uL (3.5-10.8)
--- NOTE | 2019-10-21 12:16 | CONS ---
CC: Dr. Florentino Cote; Dr. Hawley NEUROLOGY CONSULTATION FOLLOWUP: DATE OF CONSULT: 10/21/19 LOCATION: She is an inpatient in room 420. HOSPITALIST: ANDREA Escamilla CHIEF COMPLAINT: Amyotrophic lateral sclerosis, G-tube placement. HISTORY OF PRESENT ILLNESS: Radha Chavez is known to me from initial evaluation in the office just a few weeks ago. She presented with several months of progressive bulbar and extremity weakness and was diagnosed with ALS. She was hospitalized and had further testing and it was decided that she should have a G- tube placed. That was done yesterday. Today, she reports some pain near the site, but it is not terrible and oxycodone has been helpful. She has been able to eat some food, but she has lost a lot of weight over the last months. She has great difficulty swallowing liquids including thickened liquids. She has not had any shortness of breath. She has not been able to ambulate. MEDICATIONS: Consist of: 1. Oxycodone 5 mg p.o. q.4 hours as needed for pain. 2. Sertraline 25 mg p.o. daily. 3. She is on Arimidex 1 mg p.o. every other day. 4. Baclofen 5 mg p.o. t.i.d. p.r.n. muscle spasms. PHYSICAL EXAM: She is very thin, but well hydrated. Temperature 97.7, blood pressure 142/83, heart rate in the 90s. Respiratory rate is 17 and oxygen saturation is 95% on room air. Lungs are clear bilaterally. Her cough is extremely weak. She has tongue fasciculations. Speech is dysarthric, but intelligible. She has spasticity and atrophy of the right upper extremity and to lesser extent the left upper extremity. She has spasticity and weakness in both lower extremities. She is alert and fully oriented. Memory is intact and language is fluent. LABORATORY DATA: Notable for a normal chemistry profile from today. INR yesterday normal as was PTT. CBC today notable for slightly low platelet count at 136,000. IMPRESSION AND PLAN: Impression is that of amyotrophic lateral sclerosis. I recommend starting riluzole. I explained the potential benefits. Specifically that there is a 2 to 3 month improvement in mortality from time of diagnosis. I explained that there has to be intermittent blood test monitoring to look for occasional hepatic toxicity. I will speak with the hospitalist who I understand will be Karlie Welch NP , via my conversation with Dr. Guaman. I have spoken briefly with the cementer. Use of the G-tube will need to be coordinated between the surgeon , the cementer, and the hospitalist program until Dr. Hawley is able to take over. I plan to see her in followup in my office in a few weeks. [id number]/[facility] #: [id number] [facility]
[2019-10-21] MEDS: RILUZOLE 50 MG PO SCH ×2 (13:06→22:47)
--- NOTE | 2019-10-21 13:06 | PN ---
Progress Note - Progress Note Date of Service: 10/21/19 Note: No reports of significant abdominal pain aside from expected post procedural pain controlled with PO narcotics. Selected Entries 10/21/19 11:00 Temperature 98.3 F Temperature Oral Source Pulse Rate 82 Respiratory 16 Rate Blood Pressure 137/70 (mmHg) Blood Pressure 92 Mean O2 Sat by Pulse 95 Oximetry Laboratory Tests 10/21/19 07:49 WBC 6.8 Hgb 12.6 Hct 38 Plt Count 136 L Plan: 1. Nutrition to evaluate patient and make recommendations for tube feeds. 2. Hospitalists will submit orders for tube feeds. 3. Patient has been instructed to return to Interventional Radiology (Imaging Dept) to have retention sutures removed. 4. Tube feeds may commence. 5. Barring any complications or severe pain, DC to home after tube feed monitoring is okay from IR perspective. Plan discussed with Machelle Welch NP.
--- NOTE | 2019-10-21 17:37 | PN ---
Subjective Date of Service: 10/21/19 Interval History: Resting in bed on assessment with daughter at bedside. Patient reports pain at G tube insertion site is currently "6" out of 10. Reports is worsens with movement. Reports current pain medication is helpful. Denies cp, sob, nausea, vomiting, fever, chills. Objective Active Medications: Acetaminophen (Tylenol Tab*) 650 mg PO Q4H PRN PRN Reason: MILD PAIN or TEMP > 100.4 Al Hydrox/Mg Hydrox/Simethicone (Maalox Plus*) 30 ml PO Q6H PRN PRN Reason: INDIGESTION Anastrozole (Arimidex (Nf)) 1 mg PO Q48HR [facility] Baclofen (Lioresal Tab*) 5 mg PO TID PRN PRN Reason: SPASMS - MUSCLE Enoxaparin Sodium (Lovenox(*)) 30 mg SUBCUT Q24H [facility] Last Admin: 10/20/19 21:32 Dose: 30 mg Sodium Chloride (Ns 0.9% 1000 Ml) 1,000 mls @ 0 mls/hr IV KVO [facility] Lisinopril (Prinivil Tab*) 2.5 mg PO DAILY [facility] Last Admin: 10/21/19 08:20 Dose: 2.5 mg Ondansetron HCl (Zofran Inj*) 4 mg IV Q4H PRN PRN Reason: NAUSEA/VOMITING Oxycodone HCl (Roxycodone Tab*) 5 mg PO Q4H PRN PRN Reason: PAIN - SEVERE Last Admin: 10/21/19 13:40 Dose: 5 mg Riluzole (Riluzole (Nf)) 50 mg PO BID [facility] Last Admin: 10/21/19 13:06 Dose: Not Given Senna (Senokot 8.6 Mg Tab*) 1 tab PO BID PRN PRN Reason: CONSTIPATION Sertraline HCl (Zoloft*) 25 mg PO DAILY [facility] Last Admin: 10/21/19 08:19 Dose: 25 mg Vital Signs - 8 hr 10/21/19 10/21/19 10/21/19 10:32 11:00 13:40 Temperature 98.3 F Pulse Rate 82 Respiratory 18 16 18 Rate Blood Pressure 137/70 (mmHg) O2 Sat by Pulse 95 Oximetry 10/21/19 10/21/19 15:00 15:54 Temperature 98.8 F Pulse Rate 77 Respiratory 16 16 Rate Blood Pressure 152/70 (mmHg) O2 Sat by Pulse 95 Oximetry Oxygen Devices in Use Now: None Appearance: Comfortable, NAD Eyes: No Scleral Icterus Ears/Nose/Mouth/Throat: Clear Oropharnyx, Mucous Membranes Moist Neck: NL Appearance and Movements; NL JVP Respiratory: Symmetrical Chest Expansion and Respiratory Effort, Clear to Auscultation Cardiovascular: NL Sounds; No Murmurs; No JVD, RRR, No Edema Abdominal: - - Abd soft. BS+. Mild tenderness near G tube site Lymphatic: No Cervical Adenopathy Extremities: No Edema Skin: No Rash or Ulcers Neurological: Alert and Oriented x 3 - Nutrition: Malnutrition Diagnosis/Plan Malnutrition Assessment by Registered Dietitian: . Result Diagrams: 10/21/19 07:49 10/21/19 07:49 Additional Lab and Data: Laboratory Results - last 24 hr 10/21/19 10/21/19 07:49 07:49 WBC 6.8 RBC 4.14 Hgb 12.6 Hct 38 MCV 91 MCH 31 MCHC 34 RDW 13 Plt Count 136 L MPV 10.9 H Neut % (Auto) 79.2 Lymph % (Auto) 13.2 Dupage % (Auto) 6.7 Eos % (Auto) 0.4 Baso % (Auto) 0.5 Absolute Neuts (auto) 5.4 Absolute Lymphs (auto) 0.9 L Absolute Monos (auto) 0.5 Absolute Eos (auto) 0.0 Absolute Basos (auto) 0.0 Absolute Nucleated RBC 0.0 Nucleated RBC % 0.0 Sodium 141 Potassium 3.9 Chloride 106 Carbon Dioxide 26 Anion Gap 9 BUN 20 Creatinine 0.54 Est GFR ( Amer) 132.1 Est GFR (Non-Af Amer) 109.2 BUN/Creatinine Ratio 37.0 H Glucose 88 Calcium 9.3 Microbiology and Other Data: . Assess/Plan/Problems-Billing Assessment: 79 yr old female with pmh significant for endometerial cancer with lung mets, htn, depression and als who is s/p gtube placement - Patient Problems (1) ALS (amyotrophic lateral sclerosis) Comment: - Gtube placement due to declining nutritional status. - Started on Riluzole by Dr Martinez (not on formulary therefore patient will need to start as outpatient) - Follow up with Dr Maiden Rock in a few weeks (2) Nutrient intake below expected requirement Comment: - [employer] - Jevity bolus ordered - Teaching provided by nursing (3) Hypertension Comment: - WNL - Cont home medication of lisinopril (4) Abdominal pain Comment: - Cont oxycodone (5) DVT prophylaxis Current Visit: No Status: Acute Code(s): Z29.9 - ENCOUNTER FOR PROPHYLACTIC MEASURES, UNSPECIFIED SNOMED Code(s): 419180791 Comment: - Lovenox. Status and Disposition: Discharge tomorrow after further treatment and boluses. In addition pain control. Attending: Nancy Baez
[2019-10-21] MEDS: Enoxaparin(*) 30 MG/0.3 ML SYR SUBCUT SCH (22:46)
[2019-10-21] MEDS: Acetaminophen TAB* 325 MG PO PRN (22:46)
[2019-10-22] MEDS: Acetaminophen TAB* 325 MG PO PRN ×2 (03:08→11:51)
[2019-10-22] MEDS: Lisinopril TAB* 5 MG PO SCH (08:35)
[2019-10-22] MEDS: Sertraline* 25 MG TAB PO SCH (08:35)
[2019-10-22] MEDS: RILUZOLE 50 MG PO SCH (08:43)
[2019-10-22] MEDS ORDERED: CMCS: Anastrozole (NF) 1 MG TAB PO SCH (09:00)
[2019-10-22 12:22] VITALS: BP 131/59
[2019-10-22] MEDS: oxyCODONE TAB* 5 MG TAB PO PRN (14:04)
--- NOTE | 2019-10-22 22:56 | DS ---
CC: Dr. Hawley * DISCHARGE SUMMARY: DATE OF ADMISSION: 10/20/19 DATE OF DISCHARGE: 10/22/19 PRIMARY CARE PROVIDER: Dr. Hawley. ATTENDING PHYSICIAN: Dr. Nancy Baez * (dictated by Jimbo Blakely NP) CONSULTING PHYSICIAN: Dr. Florentino Cote, interventional radiologist. PRIMARY DIAGNOSES: 1. Deteriorating nutritional status. 2. Status post elective percutaneous endoscopic gastrostomy tube placement. 3. Amyotrophic lateral sclerosis. SECONDARY DIAGNOSES: 1. Endometrial cancer with lung metastasis. 2. Hypertension. 3. Depression. PROCEDURES WHILE IN THE HOSPITAL: Elective PEG tube placement by Dr. Cote in interventional radiology department. DISCHARGE HOME MEDICATIONS: New home medications: 1. Oxycodone 5 mg p.o. q.8 hours p.r.n., MDD 3. 2. Riluzole 50 mg p.o. b.i.d. Continued home medications: 1. Baclofen 5 mg p.o. t.i.d. 2. Arimidex 1 mg p.o. q.48 hours. 3. Lisinopril 2.5 mg p.o. daily. 4. Zoloft 25 mg p.o. daily. 5. Vitamin B12 injection 1000 mcg IM every 2 weeks. HISTORY OF PRESENT ILLNESS/HOSPITAL COURSE: Ms. Kathy Ruiz is a 79-year-old female with a past medical history significant for ALS, depression, hypertension , endometrial cancer with lung metastasis, who [place] [facility] [place]. Please see history and physical dictated by ANDREA Escamilla, for complete summary of events leading up to the hospitalization, but in short, the patient has the recent diagnosis of ALS and has been having progressive dysphagia and nutritional difficulties; therefore, she underwent an elective PEG tube placement. During this hospitalization, the patient had an elective PEG tube placement as mentioned above on 10/20/19. The patient tolerated this well and recovered well. The patient recovered on the medical floor. The patient was visited by doorperson, who recommended Jevity boluses. The patient was also provided with education by the nurses regarding PEG tube care and feeding. It should also be noted that the patient's daughter was present during this education. During this hospitalization, the patient also had her pain managed. She did have mild pain after the insertion, which was well managed with oxycodone p.o. The patient is stable for discharge home today. Vital Signs: Temp 98.5, HR 75, RR 16, O2 saturation 95% on room air, BP 131/59. REVIEW OF SYSTEMS: The patient reports mild pain at PEG tube insertion site upon movement. The patient denies any pain at rest. The patient denies nauseas , vomiting, diarrhea, chest pain, shortness of breath, fever, chills. A 14- point review of systems was completed and all others were negative. PHYSICAL EXAM: General: Ms. Ruiz is sitting in bed. Appears to be in no acute distress. Appears stated age. HEENT: Sclerae without icterus. Oral mucosa is moist without lesions. Posterior pharynx is clear. Neck: No lymphadenopathy. Respiratory: Symmetric chest expansion. No accessory muscle use. Lungs are clear to auscultation. CV: Regular rate and rhythm. S1, S2 present. No murmurs, rubs, or gallops. Extremities: Skin is warm and smooth bilaterally. No edema. No clubbing or cyanosis. Musculoskeletal: No pain or deformities. Abdomen is soft. Slightly tender to palpation near PEG tube site. Bowel sounds normoactive. Neuro: The patient is awake, alert, and oriented x4. Skin: Grossly intact without lesions. PEG tube site dressing is benign and site is benign. LABORATORY DATA: WBC 6.8, hemoglobin 12.6, hematocrit 38, platelets 136. Sodium 141, potassium 3.9, chloride 106, carbon dioxide 26, BUN 20, creatinine 0.54. DISCHARGE PLAN/FOLLOWUP: 1. Status post percutaneous endoscopic gastrostomy tube placement for dysphagia and nutritional deficits: As mentioned above, the patient has received nursing and doorperson education while in the hospital. The patient and daughter both stated understanding and feel comfortable being discharged. The patient has a followup on 10/27/19, to see Dr. Florentino Cote. 2. Pain control: The patient did have mild pain at insertion site with movement. The patient was requiring p.o. pain medication while in the hospital. I have discharged the patient with oxycodone 5 mg q.8 hours p.r.n. pain, MDD 3. I have also educated the patient to use Smooth Move tea once daily while taking narcotics. I have also educated the patient to start with [id number] medications and advance to oxycodone if needed. 3. Hypertension: The patient should continue her home med of lisinopril. 4. Depression: The patient should continue her home medication of Zoloft. 5. Amyotrophic lateral sclerosis: The patient is to follow up with Dr. Martinez in 1 to 2 weeks. The patient has been sent in a script for Riluzole, which was recommended by Dr. Martinez. The patient should continue taking this and follow up with Dr. Martinez. 6. Followup: As mentioned above, the patient should follow up with Dr. Cote on 10/27/19. The patient should follow up with her primary care in 1 to 3 days. The patient should follow up with her outpatient neurologist, Dr. Martinez , in 1 to 2 weeks. 7. Education: The patient and daughter were educated on signs and symptoms of new or worsening condition, when to return to the emergency department. Both stated understanding. This is a summarized report of a complex medical history and hospital stay. For further details, please see entire medical record. TIME SPENT: Approximately 45 minutes was spent on this discharge, greater than half of that time was spent [id number] with the patient and daughter discussing discharge plans and instructions. This plan has been discussed with my attending, Dr. Nancy Baez, who is in agreement with plan of care. JIMBO BLAKELY, MONISHA [id number]/[facility] #: [id number] GREGOR
== END 2019-10-22 14:55 | disposition home or self-care (01) ==
LOC: IMG 13:57 → MED 18:19
PROVIDERS: ADMIT Radiology Diagnostic Radiology; ATTEND Internal Medicine
DX: E63.9 Nutritional deficiency, unspecified (principal); G12.21 Amyotrophic lateral sclerosis; C54.1 Malignant neoplasm of endometrium; C34.90 Malignant neoplasm of unspecified part of unspecified bronchus or lung; F32.9 Major depressive disorder, single episode, unspecified; R10.9 Unspecified abdominal pain; Z79.899 Other long term (current) drug therapy; Z90.710 Acquired absence of both cervix and uterus; Z87.19 Personal history of other diseases of the digestive system; Z88.8 Allergy status to other drugs, medicaments and biological substances; Z66 Do not resuscitate
CPT/HCPCS: 36415; 49440; 49446; 80048; 85025; 85049; 85610; 85730; 96372; 99156; 99157; A9270-GY; C1769; G0378; J0690; J1610; J1650; J2250; J2310; J3010; J3490; Q9967